=== PATIENT | female | born 1940 | race Caucasian/White ===

== ENCOUNTER 2017-08-15 07:41 | Emergency (ER) | payer MEDICARE, BC ==
[~2017-08-15] VITALS: Ht 170.2 cm; Wt 93.0 kg
[~2017-08-15 07:41] MED LIST: ADULT LOW DOSE81 MG PO; ALLOPURINOL 30300 M1 PO; ASA81BEC PO; AUGMENTIN 875-1 EACH PO; B-12500 MCG PO; BAYER CHEWABLE81 MG PO; CALCIUM 1,0001 EACH PO; CIPRO250 M1 PO; CIPRO500 MG PO; CIPROFLOXACIN500 M1 PO; DARVOCET-N 1001 EACH PO; GLUCOPHAGE500 MG PO; JANUVIA25 MG PO; LEVOTHROID PO; LEVOTHYROXINE 0.1 MG PO; LISINOPRIL10 MG PO; LOMOTIL TABLET1 EACH PO; LOPRESSOR50 PO; MECLIZINE HCL25 M1 PO; METFORMIN HCL500 MG PO; NOHOMEMEDICATIONS; NORCO 5-325 TA1 EACH PO; ONDANSETRON HCL4 M2 PO; PANCRELIPASE PO; PHENERGAN 25 MG25 M1 PO; PRINIVIL5 MG PO; SORINE 80 MG TA80 M1 PO; SORINE 80 MG TA80 MG PO; TOPROL XL100 MG PO; ULTRAM 50MG TAB50 MG PO; ZOCOR 20 MG TAB20 M1 PO; ZOCOR20 MG PO
[2017-08-15] MEDS ORDERED: CREON DR 24,001 EACH PO (07:53)
[2017-08-15 08:58] LABS: ABSOLUTE BASOPHILS 0.1 thou/uL (0.0-0.2); ABSOLUTE EOSINOPHILS 0.3 thou/uL (0.0-0.7); ABSOLUTE LYMPHOCYTES 1.7 thou/uL (0.8-5.3); ABSOLUTE MONOCYTES 0.7 thou/uL (0.0-1.2); ABSOLUTE NEUTROPHILS 5.6 thou/uL (1.6-8.1); BASOPHILS 0.7 %; EOSINOPHILS 4.1 %; LYMPHOCYTES 19.8 %; MCH 30.2 pg (26.0-34.0); MCHC 32.6 g/dL (28.0-37.0); MCV 92.7 fL (80.0-100.0); MONOCYTES 8.2 %; MPV 8.9 fl. (7.2-11.1); NUCLEATED RBCS 0 /100WBC; PLATELET COUNT* 230 thou/uL (150-400); POLYS 67.2 %; RBC 4.64 mil/uL (4.20-5.00); RDW-CV 13.9 % (10.5-14.5); WBC 8.3 thou/uL (4.0-11.0)
[2017-08-15 09:09] LABS: CALCIUM 8.8 mg/dL (8.5-10.1); CREATININE 1.1 mg/dL (0.6-1.3); POTASSIUM 4.3 mmol/L (3.5-5.1)
[2017-08-15 09:14] LABS: ALBUMIN 3.3 g/dL (3.4-5.0); TOTAL BILIRUBIN 0.6 mg/dL (<0.1-1.0); TOTAL PROTEIN 7.4 g/dL (6.4-8.2)
[2017-08-15 09:16] LABS: URINE BILIRUBIN NEGATIVE (Negative); URINE BLOOD NEGATIVE (Negative); URINE CLARITY CLEAR; URINE COLOR YELLOW; URINE GLUCOSE-RANDOM NEGATIVE (Negative); URINE KETONES NEGATIVE (Negative); URINE LEUKOCYTES-REFLEX NEGATIVE (Negative); URINE NITRITE-REFLEX NEGATIVE (Negative); URINE PROTEIN NEGATIVE (Negative); URINE UROBILINOGEN 0.2 E.U./dl (0.2-1.0)
[2017-08-15 09:52] VITALS: BP 166/69
== END 2017-08-15 10:39 | disposition home or self-care (01) ==
LOC: M.ERS 07:41
PROVIDERS: Personal Emergency Response Attendant
DX: C18.9 Malignant neoplasm of colon, unspecified (principal); E03.9 Hypothyroidism, unspecified; I48.91 Unspecified atrial fibrillation; I12.9 Hypertensive chronic kidney disease with stage 1 through stage 4 chronic kidney disease, or unspecified chronic kidney disease; N18.3 Chronic kidney disease, stage 3 (moderate); Z88.8 Allergy status to other drugs, medicaments and biological substances; Z90.49 Acquired absence of other specified parts of digestive tract

== ENCOUNTER 2017-08-20 05:50 | Inpatient (IN) | payer MEDICARE, BC ==
[~2017-08-20] VITALS: Ht 167.6 cm; Wt 92.1 kg
[~2017-08-20 05:50] MED LIST changes: +CREON DR 24,001 EACH PO
[2017-08-20 15:30] VITALS: BP 147/56
--- NOTE | 2017-08-20 15:30 | NUR ---
ASSUMED PT. CARE AND RECEIVED REPORT FROM JOSE A MOSES. PT. A/OX4, VSS, MONITOR PLACED TRACING SR. PT. CURRENTLY RATES PAIN @ 3/10, GIVEN MORPHINE IN PACU PRIOR TO TRANSPORT. FULL ASSESSMENT COMPLETED, REFER TO CHARTING. LAP SITES TO ABD, DRESSED WITH CLEAN INTACT DRESSINGS. FAMILY AT BEDSIDE. PT. ORIENTED TO ROOM/PROCEDURES. CALL LIGHT IN REACH, WILL CONTINUE WITH PLAN OF CARE.
--- NOTE | 2017-08-20 18:50 | NUR ---
PT. STABLE THROUGH OUT SHIFT. TREATED FOR PAIN X1, TOLERATED WELL. TOLERATED ICE CHIPS AND WATER, HOWEVER HAS NOT ATTEMPTED OTHER CLEAR LIQUIDS AT THIS TIME. PT. EDUCATED ON NEED TO INCREASE ACTIVITY TO HELP WITH GAS PAIN, VERBALIZED UNDERSTANDING. HOURLY ROUNDING COMPLETED THROUGH OUT SHIFT FOR PT. SAFETY.
[2017-08-20 20:20] VITALS: BP 115/42
[2017-08-21] VITALS (7 sets, daily range): BP systolic 121–149; BP diastolic 43–74
[2017-08-21 05:28] LABS: ABSOLUTE EOSINOPHILS 0.2 thou/uL (0.0-0.7); ABSOLUTE LYMPHOCYTES 1.7 thou/uL (0.8-5.3); ABSOLUTE NEUTROPHILS 7.7 thou/uL (1.6-8.1); BASOPHILS 0.3 %; EOSINOPHILS 1.4 %; HEMATOCRIT 35.9 % (37.0-47.0); HEMOGLOBIN 12.1 gm/dL (12.0-15.0); LYMPHOCYTES 16.1 %; MCH 30.5 pg (26.0-34.0); MCHC 33.7 g/dL (28.0-37.0); MCV 90.4 fL (80.0-100.0); MONOCYTES 9.6 %; MPV 8.2 fl. (7.2-11.1); NUCLEATED RBCS 0 /100WBC; PLATELET COUNT* 187 thou/uL (150-400); POLYS 72.6 %; RBC 3.97 mil/uL (4.20-5.00); RDW-CV 13.9 % (10.5-14.5); WBC 10.7 thou/uL (4.0-11.0)
[2017-08-21 05:52] LABS: ALBUMIN 2.7 g/dL (3.4-5.0); CALCIUM 7.8 mg/dL (8.5-10.1); CREATININE 1.4 mg/dL (0.6-1.3); POTASSIUM 4.8 mmol/L (3.5-5.1); TOTAL BILIRUBIN 0.7 mg/dL (<0.1-1.0); TOTAL PROTEIN 5.5 g/dL (6.4-8.2)
--- NOTE | 2017-08-21 07:30 | NUR ---
ASSUMED CARE OF PT ASSESSED AND DOCUMENTED. PT IS ON CARDIAC MONITER TRACING SR WITH PVC,S HR 75. PT IS ON FALL PRECAUTIONS PER FACILITY PROTOCOL. VSS WNL. PT IS AFEBRILE. DAUGHTER IS AT BEDSIDE. CALL LIGHT IN REACH. WM.
--- NOTE | 2017-08-21 07:46 | NUR ---
PT IS ABLE TO COMMUNICATE HER NEEDS TO STAFF EFFECTIVELY. CURRENT PAIN MEDICATION REGIMEN HAS BEEN ADEQUATE FOR CONTROLLING HER PAIN UP TO THIS TIME. SHE IS POD#1 S/P GI SURGERY, DONE LAPROSCOPICLY, TO REMOVE AN INTESTINAL ADENOMA ETC. ZAPATA REMOVED THIS AM; TOLERATED WELL, TIP INTACT. SURGERY WILL CONTINUE TO FOLLOW HER PROGRESS.
--- NOTE | 2017-08-21 10:48 | OP ---
[address] [address] OPERATIVE REPORT Name: CRISTINA KNUTSON Room: [address] IN M.R.#: [id number] Admission: 08/20/17 Attend Phys: Eagle Watkins DO Discharge: Date of : 38 Report #: [id number] THIS REPORT FOR: //name// CC: Eagle Lazaro DO DATE OF SERVICE: 08/20/2017 REFERRING PHYSICIAN: Dr. Nubia Lazaro and also Dr. Mishel Hitchcock. 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 PROCEDURE: Laparoscopic right hemicolectomy with ileotransverse anastomosis and excision of peritoneal mass. SURGEON: Eagle Watkins DO. PRINCIPAL SCIENTIST: Marylu Sullivan DO, PGY3 resident and also student Dr. Lee Powell, MS3. ANESTHESIA: General endotracheal. ESTIMATED BLOOD LOSS: Less than 30 mL. COMPLICATIONS: None. INDICATIONS FOR PROCEDURE: The patient is a 76-year-old female who presented to the office with a colonoscopy, which showed a tubulovillous adenoma of the right colon with high-grade dysplasia. She had been getting a CAT scan for a history of pancreatitis, which noticed this questionable mass, which then instigated the colonoscopy. DESCRIPTION OF PROCEDURE: After obtaining proper consents and discussing risks and complications with the patient, she was taken to the operating room, laid in the supine position, administered general anesthesia. She was then prepped and draped in the usual fashion. She was placed in lithotomy position as well. She was secured to the bed. Preoperative antibiotics had been given. SCDs were in place. A timeout was performed and we confirmed the appropriate patient and procedure. We then made a supraumbilical skin incision with a #11 [place] [address] OPERATIVE REPORT Name: VALE KNUTSONDA MICHELLE Room: [address] IN ..#: [id number] Admission: 08/20/17 Attend Phys: Eagle Watkins DO Discharge: Date of : 39 Report #: [id number]. This was carried down through the skin into the subcutaneous tissue using electrocautery for hemostasis. Once the fascia was encountered, it was incised along the midline, grasped and elevated with [facility] clamps and divided further. The peritoneum was then bluntly opened using a hemostat. A finger was placed inside the peritoneal cavity to assure there were no ty-incisional adhesions. Next, 2-0 Vicryl sutures were placed in a [id number] fashion to secure the Kleber trocar, which was then inserted and insufflation was begun. Once insufflation was complete, full visual inspection of the anterior abdominal organs was performed. We were immediately able to identify the mass in the right colon. This had a very concerning appearance for invasive carcinoma and did appear to be coming through the colonic wall and attaching to the peritoneal surface. We also identified multiple very small whitish peritoneal and mesenteric masses. These were all less than 1 cm, but were located along the right pericolic gutter as well as down in the pelvis. We did visualize the liver and saw no gross abnormalities. No evidence of metastasis in this area. We then placed a 5 mm trocar in the suprapubic position and another 5 mm trocar in the left lower quadrant. I was then able to elevate the cecum. The mass in the right colon appeared quite large by palpation with laparoscopic instruments. There also appeared to be some mesenteric implants along the right colon. There was also an area of the omentum, which was identified, which was quite firm and consistent with a possible metastasis. We began by freeing up the right colon and the terminal ileum by opening the white line of Toldt. We did excise some of the peritoneum around where the mass was adherent to the peritoneal surface. Using blunt dissection, I was able to take down the majority of the right colon and free it up in order to move it medially to the midline. We then placed another 5 mm trocar in the left upper quadrant in order to retract the colon inferiorly. We then took down the transverse colon and went around the hepatic flexure to free up the entire right colon. When we felt that we had enough freed up, we then stopped the insufflation. We enlarged our supraumbilical incision and placed an Pepe retractor and then attempted to bring the mass and the entire right colon and transverse colon up through the incision; however, it appeared that we had not freed up quite enough of the transverse colon, so we then reinsufflated and again laparoscopically took down more of the right colon beyond the midline to the gastrocolic omentum, which was opened. We then were able to mobilize the entire right colon and transverse colon well past the midline. We did identify the duodenum and kept this out of harms way as well. We then again opened and brought the colon up through the Pepe retractor and we were able to identify proximal and distal resection area. At this time, we also noted that there was some omentum, which again felt very suspicious for omental metastasis and this was included in our resection. We then opened an avascular window in the terminal ileum and a KAREN 80 was inserted and fired across this. We then identified a distal resection margin beyond the right branch of the middle colic artery and this area was opened and a KAREN 80 was fired across this as well. We then used the LigaSure device to sequentially clamp and divide the mesentery until it was attached only at the ileocolic vessels. These were clamped proximally and distally [place] [address] OPERATIVE REPORT Name: CRISTINA KNUTSON Room: [address] IN .R.#: [id number] Admission: 08/20/17 Attend Phys: Eagle Watkins DO Discharge: Date of : 38 Report #: [id number] and then divided. We then doubly ligated the vessels using 2-0 silk suture. The specimen was then passed off and this included the peritoneal masses as well as the omental mass. We also then excised a small peritoneal mass, which was sent as a separate specimen. We then performed the anastomosis in a [id number] fashion by opening a colotomy and enterotomy and then inserted the KAREN 80 and fired it to form the anastomosis and the TA-60 stapler was used to close the colotomy. We then placed 2 crotch sutures with 2-0 Vicryl suture. We checked the area for hemostasis and then dropped this back into the peritoneal cavity. We then reinsufflated and again checked the area for hemostasis and assured there were no leaks. We then copiously irrigated the abdominal cavity. We then elected to stop the procedure. The Pepe retractor was removed along with all of the other trocars under direct vision. We then closed the midline fascia using a running #1 looped PDS suture. The subcutaneous tissues were injected with 0.5% Marcaine without epinephrine. Skin incisions were all closed using 4-0 Monocryl subcuticular stitches. The wounds were then dressed and the patient was awakened in the operating room and transported to recovery room in stable condition. <ELECTRONICALLY SIGNED> By: Eagle Watkins DO 08/21/17 1048 [id number] Watkins DO /nt
--- NOTE | 2017-08-21 12:00 | NUR ---
MET WITH PT AND DTR/LUIS TO DISCUSS HOME SITUATION/DC PLANNING. PT LIVES ALONE, SPOUSE IN FEBRUARY, SHE CARED FOR HIM PRIOR TO HIS . SHE HAS HIS EQUIPMENT STILL IF NEEDED (WALKER, BSC, SHOWER BENCH) HER APT IS HANDICAP ACCESSIBLE. PT HAS 8 CHILDREN, THEY ARE ALL ABLE TO ASSIST NEEDED. PT IS NORMALLY VERY INDEPENDENT, DRIVES AND USES NO EQUIPMENT. PER NOTES, [facility] HAS ALREADY BEEN CONSULTED BY DR HERNANDEZ AND HAVE CONTACTED PT AND DTR. WILL NEED ORDERS CALLED AND FAXED AT DC. PT PLANS TO RETURN TO HER APT AT DC. WILL FOLLOW [facility] [phone] FAX [phone]
--- NOTE | 2017-08-21 13:43 | NUR ---
Nutrition: Pt seen for nursing risk poor appetite and wt loss. Pt stated she maybe has lost a couple of pounds due to eating a little less. Usual wt was 210#, currently 205-203#. She supplements diet at home with Boost+. She dislikes Boost Breeze - refused today. CLD. Alb 2.7, BG 153. Pt appears at low risk. She is hungry and tolerating liquids well. Will follow up per protocol.
--- NOTE | 2017-08-21 17:25 | NUR ---
PT HAS BEEN UP TO THE BEDSIDE COMMODE. SHE VOIDS APPROX 50 ML PER HOUR. ENCOURAGE FLUIDS BUT HAS NOT BEEN VERY EFFECTIVE. NEW ORDER FOR IS AND PTHERPY. PT HAS HAD SEVERAL FAMILY MEMBERS AT BEDSIDE. 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 SHE WAS UNHAPPY THAT IT WAS TAKEING SO LONG TO GET PT AND ISPIROMETER. SURGICAL SITES ARE CLEAN DRY AND INTACT. PT STATES SHE HAS NO PAIN. EDUCATION GIVEN ON DEMAND. HOURLY ROUNDING COMPLETE. CALL LIGHT IN REACH. FAMILY AT BESIDE. PT IS NOW RESTING.
[2017-08-22 00:01] VITALS: BP 158/66
[2017-08-22 04:00] VITALS: BP 156/64
--- NOTE | 2017-08-22 05:08 | NUR ---
PT IS ABLE TO COMMUNICATE HER NEEDS TO STAFF EFFECTIVELY. SHE HAS DENIED THE NEED FOR PAIN MEDICATION UP TO THIS TIME. LAPROSCOPIC INCISION SITES ARE INTACT AND DRY; SURGERY IS FOLLOWING HER PROGRESS. SHE HAS BEEN UP TO THE BEDSIDE COMODE SEVERAL TIMES DURING THIS SHIFT.
[2017-08-22 05:33] LABS: HEMATOCRIT 38.3 % (37.0-47.0); HEMOGLOBIN 12.8 gm/dL (12.0-15.0); MCH 30.2 pg (26.0-34.0); MCHC 33.5 g/dL (28.0-37.0); MPV 8.6 fl. (7.2-11.1); RBC 4.25 mil/uL (4.20-5.00); RDW-CV 13.8 % (10.5-14.5); WBC 11.6 thou/uL (4.0-11.0)
[2017-08-22 05:51] LABS: ALBUMIN 2.9 g/dL (3.4-5.0); CALCIUM 8.4 mg/dL (8.5-10.1); CREATININE 1.1 mg/dL (0.6-1.3); MAGNESIUM 1.8 mg/dL (1.8-2.4); PHOSPHORUS* 2.6 mg/dL (2.5-4.9); POTASSIUM 4.2 mmol/L (3.5-5.1); TOTAL BILIRUBIN 0.7 mg/dL (<0.1-1.0); TOTAL PROTEIN 6.9 g/dL (6.4-8.2)
[2017-08-22 07:30] VITALS: BP 151/55
--- NOTE | 2017-08-22 09:50 | NUR ---
PT DEMONSTRATES STABLE INDEPENDENT BED MOB, TRANSFERS AND GAIT W/O DME SUPPORT. PT INDICATES SHE DOES HAVE ACCESS TO CANE/RW AT HOME IF NEEDED. PT INDICATES SHE HAS A HANDICAP ACCESSIBLE HOME W/ SHOWER CHAIR, GRAB BARS. PT HAS STRONG SOCIAL SUPPORT FROM CHILDREN FOR ERRANDS, HOME MANAGEMENT, LAUNDRY. NO FURTHER ACUTE PT SERVICES ARE INDICATED.
[2017-08-22 11:56] VITALS: BP 173/69
--- NOTE | 2017-08-22 15:55 | NUR ---
RECEIVED PT CARE 0700. PT IS ALERT AND ORIENTED X4. VSS. 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 PT DENIES ANY SOA. O2 SAT 96% ON ROOM AIR. PATIENT UP IN ROOM WITH BATHROOM PRIVILEDGES. GAIT IS STEADY. IVF INFUSING. ADVANCED DIET TO FULL LIQUIDS PER SURGERY. ABDOMINAL LAP SITES INTACT, NO FRESH DRAINAGE. AREA TENDER AND SORE TO PATIENT. AM ASSESSMENT CHARTED. MEDS PER MAR. PATIENT UP TO DATE ON PLAN OF CARE. KEEPING CALL LIGHT WITHIN REACH. WILL CONTINUE TO MONITOR.
[2017-08-22 16:19] VITALS: BP 144/54
--- NOTE | 2017-08-22 19:16 | NUR ---
PT PROGRESSING TOWARDS GOALS. TOLERATING HER FULL LIQUID DIET WELL WITHOUT NAUSEA OR VOMITING. PAIN CONTROLLED. PT UP AMBULATING IN ROOM. GAIT IS STEADY. IV SALINE LOCKED. HOURLY ROUNDING CHARTED. CALL LIGHT WITHIN REACH. WILL CONTINUE TO MONITOR.
[2017-08-22 20:20] VITALS: BP 149/61
[2017-08-23] VITALS: BP 168/63
[2017-08-23 04:00] VITALS: BP 148/68
[2017-08-23 05:34] LABS: HEMOGLOBIN 11.4 gm/dL (12.0-15.0); MCH 30.7 pg (26.0-34.0); MCHC 33.7 g/dL (28.0-37.0); MCV 91.1 fL (80.0-100.0); MPV 8.9 fl. (7.2-11.1); NUCLEATED RBCS 0 /100WBC; PLATELET COUNT* 179 thou/uL (150-400); RBC 3.73 mil/uL (4.20-5.00); RDW-CV 14.1 % (10.5-14.5); WBC 8.2 thou/uL (4.0-11.0)
[2017-08-23 05:49] LABS: CALCIUM 8.3 mg/dL (8.5-10.1); CREATININE 1.1 mg/dL (0.6-1.3); MAGNESIUM 1.9 mg/dL (1.8-2.4); PHOSPHORUS* 3.2 mg/dL (2.5-4.9); POTASSIUM 4.1 mmol/L (3.5-5.1)
--- NOTE | 2017-08-23 07:04 | NUR ---
A&O X 4 CALM COOPERITVE. X1 ASSIST. SR ON THE MONITOR. VITALS WNL. FALL PRECAUTIONS IN PLACE. HOURLY ROUNDING FOR SAFETY
[2017-08-23 07:13] LABS: ABSOLUTE BASOPHILS 0.1 thou/uL (0.0-0.2); ABSOLUTE EOSINOPHILS 0.4 thou/uL (0.0-0.7); ABSOLUTE LYMPHOCYTES 1.7 thou/uL (0.8-5.3); ABSOLUTE MONOCYTES 0.8 thou/uL (0.0-1.2); ABSOLUTE NEUTROPHILS 5.2 thou/uL (1.6-8.1); BASOPHILS 0.9 %; EOSINOPHILS 4.3 %; LYMPHOCYTES 20.9 %; MONOCYTES 9.8 %; POLYS 64.1 %
[2017-08-23 08:00] VITALS: BP 147/69
[2017-08-23 12:02] VITALS: BP 140/58
[2017-08-23 12:59] VITALS: BP 121/43
[2017-08-23] MEDS ORDERED: NORCO 5-325 TA1 EACH PO (13:21)
--- NOTE | 2017-08-23 13:45 | NUR ---
VSS, ASSUMED CARE IN THE AM, ASSESSMENT PERFORMED AND CHARTED, FALL PRECAUTIONS IN PLACE AND CALL LIGHT IN REACH, PT IS A&O4 AND UP WITH STAND BY AND ON RA TRACING SR ON THE MONITOR, PT DENIES ANYB PAIN AND HER GOAL IS TO D/C TO HOME ON DAY OF CARE. AT THIS TIME I HAVE RECIEVED D/C INSTRUCTIONS, UPDATED MEDICATIONS LIST AND FOLLOW UP APPOINTMENTS PLACED IN D/C PAPERS, PT WAS GIVEN D/C INSTRUCTIONS AND IV AND TELE MONITOR D/C, HOURLY ROUNDS COMPLETED, PT DENIES ANY QUESTIONS OR CONCERNS AT TIME OF D/C, SCRIPTS AMD MEDICATION INFO SHEETS PROVITED TO PT, ALL BELONGINGS GATHERED AND PLACE WITH PT, PT WAS WALKED OUT VIA VOLNTEER AND WHEEL CHAIR TO FRONT TO CAR WITH FAMILY.
--- NOTE | 2017-08-27 15:40 | S ---
[address] [address] SURGICAL PATH RPT PROCEDURE Name: CRISTINA KNUTSON Room: [address] IN M.R.#: [id number] Admission: 08/20/17 Date of : 38 Discharge: 08/23/17 Report #: [id number] Path Case #: [id number] PATHOLOGY REPORT COLLECTION DATE: 08/20/2017 RECEIVED DATE: 08/20/2017 SUBMITTING PHYS: Dr. Eagle Watkins OTHER PHYS: Dr. Nubia Lazaro SPECIMEN(S) RECEIVED: A.Right colon B.Peritoneal implant * * * * * * * * * * * * FINAL DIAGNOSIS: A. 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 - AT LEAST TWO OF AT LEAST TWENTY-SIX LYMPH NODES WITH METASTATIC MUCINOUS ADENOCARCINOMA. (SEE COMMENT) - Appendiceal remnant. SPECIMEN Specimen: Terminal ileum Cecum Ascending colon Procedure: Right hemicolectomy Macroscopic Intactness of Mesorectum: Not applicable TUMOR Primary Tumor Site: Cecum Histologic Type: Mucinous adenocarcinoma Histologic Grade: Low-grade (well differentiated to moderately differentiated) Tumor Size: Greatest dimension (cm): 5.6 Tumor Deposits: Not identified Tumor Extent Site(s) of Direct Extent of Tumor: Cecum Microscopic Tumor Extension: Tumor directly invades adjacent structures: inked pericolic fatty surface is involved by mucinous adenocarcinoma Macroscopic Tumor Perforation: Not Identified Accessory Tumor Findings Lymph-Vascular Invasion: [place] [address] SURGICAL PATH RPT PROCEDURE Name: CRISTINA KNUTSON Room: [address] IN [facility]#: [id number] Admission: 08/20/17 Date of : 38 Discharge: 08/23/17 Report #: [id number] Path Case #: [id number] Histologic Features Suggestive of Microsatellite Instability Intratumoral Lymphocytic Response (tumor-infiltrating lymphocytes): None Peritumor Lymphocytic Response (Crohn-like response): None Tumor Subtype and Differentiation: Mucinous tumor component Specify Percentage of Mucinous Tumor Component: 90 Perineural Invasion: Not identified Type of Polyp in Which Invasive Carcinoma Arose: Tubulovillous adenoma MARGINS For Resection Specimens Only Proximal Margin: Uninvolved by invasive carcinoma Distance of Tumor from Margin: Specify (cm): 7.7 Distal Margin: Uninvolved by invasive carcinoma Distance of Tumor from Margin (required only for rectal tumors): Specify (cm): 8.2 Circumferential (Radial) Margin: Involved by invasive carcinoma (tumor present 0-1 mm from margin) Mesenteric Margin: Uninvolved by invasive carcinoma Distance of Tumor from Margin: Specify (cm): 5.8 LYMPH NODES Regional Lymph Nodes: Number of Lymph Nodes Examined: At least: 26 Number of Lymph Nodes Involved: At least: 2 STAGE (PTNM) Primary Tumor (pT): pT4b: Tumor directly invades or is adherent to other organs or structures Regional Lymph Nodes (pN): pN1b: Metastasis in 2 to 3 regional lymph nodes ADDITIONAL FINDINGS Additional Pathologic Findings: Other: widespread, separate low grade micropapillary serous carcinoma, 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 Peritoneal implants: - LOW GRADE MICROPAPILLARY SEROUS CARCINOMA. (SEE COMMENT) COMMENT: Multiple sections of the cecal tumor show villous adenoma with extracellular mucinous type adenocarcinoma extending directly out of it, through the wall of the colon, and into the fat to involve the inked fatty surface (A4 and A6). In addition, a distinctly different low grade papillary serous carcinoma is seen in multiple sections including essentially all of the grossly described "[place] [address] SURGICAL PATH RPT PROCEDURE Name: CRISTINA KNUTSON Room: [address] IN [facility]#: [id number] Admission: 08/20/17 Date of : 38 Discharge: 08/23/17 Report #: [id number] Path Case #: [id number] omentum" (A23), the peritoneal implant (B1), the serosa/wall of the cecum at the staple line for the missing base of appendix (A24), and in several foci where it is seen to collide with the mucinous adenocarcinoma (A3, A4, A6, and A8). The latter tumor shows distinct invasive micropapillae with low grade nuclei associated with desmoplasia and many psammoma bodies throughout, typical of that seen as an ovarian primary. A panel of properly controlled immunohistochemical stains are performed on the cecal tumor (A3) as well as the peritoneal implant (B1) and show the following results: (Block A3) (Block B1) CK7- Negative CK7 - Positive CK20 - Positive CK20 - Negative WT-1 - Cytoplasmic weak positive , nuclear negative WT-1 - Nuclear positive, cytoplasmic negative PAX8 - Negative PAX8 - Positive CDX2 - Positive CDX2 - Negative HBME-1 - Negative HBME-1 - Positive CEAp - Positive CEA-p - Negative Calretinin - Negative Calretinin - Negative Estrogen receptor - Positive Sections of the "possible satellite tumor" submitted in A11 through A13 are noted to represent a large nodule of mucinous adenocarcinoma with some adjacent residual minor lymph node and this nodule, which measured 2.0 x 1.5 x 1.4 cm, may represent several matted lymph nodes and it is noted that mucinous adenocarcinoma extends into the adjacent perinodal fat as well. Microsatellite instability/mismatch repair protein testing performed on A8 (noted to contain both mucinous adenocarcinoma and serous carcinoma) shows the following results: Specimen: Formalin fixed paraffin embedded tissue Specimen ID: [id number] Reason for testing: To evaluate for evidence of defective mismatch repair proteins. Method: Immunohistochemical staining for the presence or absence of protein expression of one or more of the following MMR protein markers: MLH1, MSH2, MSH6 and PMS2. Tumor type: Colonic mucinous adenocarcinoma (extracellular type) Results: MLH1 [place] [address] SURGICAL PATH RPT PROCEDURE Name: CRISTINA KNUTSON Room: [address] IN [facility].#: [id number] Admission: 08/20/17 Date of : 38 Discharge: 08/23/17 Report #: [id number] Path Case #: [id number] MSH2 - Preserved MSH6 - Preserved PMS2 - Preserved Mismatch Repair Status: MMR Proficient (MMR-P) Interpretation: (MMR-P) All four MMR proteins are preserved within tumor cells. This suggests the presence of normal DNA mismatch repair function within the tumor and an observable defect in mismatch repair is not identified. The likelihood that this patient has an inherited germline mutation syndrome due to defective mismatch repair is reduced but not totally eliminated. If the patient has a strong personal or family history of HPNCC/Duarte syndrome related cancers (colorectal, endometrial, gastric, ovarian, pancreatic, ureter/renal pelvis, biliary tract, brain, small bowel and Gabriel-James syndrome), consider MSI testing by PCR methodology. Suggest clinical correlation and follow up. Specimen: Formalin fixed paraffin embedded tissue Specimen ID: A8 Reason for testing: To evaluate for evidence of defective mismatch repair proteins. Method: Immunohistochemical staining for the presence or absence of protein expression of one or more of the following MMR protein markers: MLH1, MSH2, MSH6 and PMS2. 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 This suggests the presence of normal DNA mismatch repair function within the tumor and an observable defect in mismatch repair is not identified. The likelihood that this patient has an inherited germline mutation syndrome due to defective mismatch repair is reduced but not totally eliminated. If the patient has a strong personal or family history of HPNCC/Duarte syndrome related cancers (colorectal, endometrial, gastric, ovarian, pancreatic, ureter/renal pelvis, biliary tract, brain, small bowel and [place]-James syndrome), consider MSI testing by PCR methodology. Suggest clinical correlation and follow up. These test results are designed for screening purposes only and are useful tools in identifying cancer patients that are more likely to have Duarte Syndrome related diagnoses. Tests should be interpreted in the context of clinical findings, family history and laboratory data. Abnormal IHC results for MMR protein expression are not considered diagnostic [place] [address] SURGICAL PATH RPT PROCEDURE Name: CRISTINA KNUTSON Room: [address] DIS IN M.R.#: [id number] Admission: 08/20/17 Date of : 38 Discharge: 08/23/17 Report #: [id number] Path Case #: [id number] The section of the grossly described cystic structure in the pericolic fat (A14) shows a lumen lined by a uniform colonic mucosal lining and rimed by a muscle wall and is most consistent with a remnant of appendiceal tissue. Preliminary findings discussed with Dr. Eagle Watkins on afternoon of 08/22/2017. Reviewed with Dr. David Gtz who agrees with the diagnoses. (MELISSA:db:; 08/26/2017) Professional services performed under supervision of [facility] Car[place] [address]. Technical services performed by [facility] under supervision of a [facility] Car[employer] Gr[employer] Inspector at [address] [place] [address], [address], [place] [address]. PATHOLOGIST: Herbie Dubois M.D. REPORT ELECTRONICALLY SIGNED BY: Herbie Dubois M.D. DATE/TIME: 08/27/2017 15:39 * * * * * * * * * * * * GROSS PATHOLOGY: A. The specimen is received in formalin labeled "Cristina Knutson, right colon". Received is a right hemicolectomy specimen consisting of a segment of small bowel measuring 6.9 cm in length by 2.2 cm in diameter contiguous with a segment of right colon measuring 14.8 cm in length and ranging in diameter from 3.8 to 4.5 cm. Both margins are stapled closed. The serosal surface of the small bowel is pink-posadas and smooth in appearance, and is predominantly fat wrapped. The serosal surface of the colon is pink-posadas in appearance with slight amount of overlying adhesions, and is predominantly fat wrapped. 8.8 cm from the distal margin, the colon is strictured. The attached mesenteric fat measures up to 6.1 cm in thickness. There is a moderate amount of attached omentum measuring 12.2 x 9.5 x 2.1 cm. The specimen is opened along the antimesenteric line and placed into formalin admixed with a lymph node enhancement solution prior to sectioning. After overnight fixation, further opening of the specimen reveals light posadas mucosa with normal architectural folds in the small bowel. The ileocecal valve is pale posadas and slightly lipomatous in appearance. 1.5 cm distal to the ileocecal valve, there is a well-circumscribed, irregular in contour, friable pale posadas mass measuring 5.6 x 4.5 cm, which is 7.7 cm from the proximal margin, and 8.2 cm from the distal margin. Though the mass is not circumferential, there is a 90% occlusion of the colonic lumen. The opposing serosal and fatty surfaces are inked black. Sectioning through the mass reveals gross extension through the muscular propria into the underlying soft tissue where the mass displays mucinous characteristics, which grossly abuts the inked fatty surface, and is 5.8 cm from the mesenteric margin. The maximum depth of invasion is [facility] [address] [place] [address] SURGICAL PATH RPT PROCEDURE Name: CRISTINA KNUTSON Room: [facility]- DIS IN M.R.#: [id number] Admission: 08/20/17 Date of : 38 Discharge: 08/23/17 Report #: [id number] Path Case #: [id number] 2.4 cm. The remainder of the colonic mucosa is light posadas and predominantly flattened in appearance. No additional nodules or lesions are noted grossly. The appendix is absent. Sectioning through the attached pericolic fat reveals a possible satellite tumor displaying mucinous characteristics, measuring 2.0 x 1.5 x 1.4 cm in greatest dimensions, which is 0.5 cm from the fatty surface, which is inked blue. This possible satellite tumor is located in the pericolic fat 1.4 cm proximal to the mass and 4.5 cm from the mesenteric margin. Further sectioning through the pericolic fat reveals a cystic structure measuring 1.2 cm filled with light brown fluid, as well as 22 readily identifiable lymph nodes ranging in size from 0.1 to 1.1 cm in maximum dimensions. Sectioning through the omentum reveals an indurated area measuring 2.5 x 2.5 x 1.4 cm in greatest dimensions. The remainder the omentum displays yellow-posadas, lobulated cut surfaces with no grossly distinct nodules or lesions. The specimen is submitted representatively as follows: A1 proximal margin, en face A2 distal margin, en face A3-A10 junior sales representative sections of mass, with cassettes A4 through A7 additionally bisected into mucosal and serosal/fatty aspects, with relationship of mass with inked fatty surface submitted in cassettes A4 and A6 A11-A13 junior sales representative sections of possible satellite tumor, with closest fatty surface submitted in cassette A11 A14 junior sales representative section of cystic structure located in pericolic fat A15 small bowel mucosa A16 ileocecal valve A17 uninvolved colonic mucosa A18-A21 intact lymph nodes A22 one bisected lymph node A23 junior sales representative sections of indurated omentum. ([facility]; 08/21/2017) After initial microscopic examination, gross photographs are taken from the serosal and mucosal aspects of the appendiceal orifice. Sectioning through this area reveals the presence of multiple ирина consistent with a staple line. This area is sectioned and submitted entirely in cassettes A24 and A25. ([facility]; 08/23/2017) B. The specimen is received in formalin labeled "Cristina Knutson, peritoneal implants". Received is a segment of yellow-posadas lobulated tissue measuring 0.6 x 0.5 x 0.3 cm in greatest dimensions. The specimen is submitted entirely in cassette B1. ([facility]; 08/21/2017) CLINICAL HISTORY: Tubulovillous [place] [address] SURGICAL PATH RPT PROCEDURE Name: CRISTINA KNUTSON Room: [address] IN [facility].#: [id number] Admission: 08/20/17 Date of : 38 Discharge: 08/23/17 Report #: [id number] Path Case #: [id number] INITIAL CPT CODE(S): A; 39783, 36776, 50858, 43852, 03046, 32135, 97231, 92198, 57160, 72908, 26164, 65127, 83822, 96739, 46239, 68282, 05572 B; 54159, 20368, 08792, 42778, 72710, 59310, 33041, 79020, 65334, 16393, 54160(3) Professional services performed by [facility] at [address], [place] [address] Technical services performed by [facility] at [address] [place] [address], [address], [place] [address]. [facility] [address] [place] [address] PHONE: [phone] DIRECTOR: David Gtz M.D. * * * END OF REPORT * * *
== END 2017-08-23 13:30 | disposition home or self-care (01) | DRG 330 ==
LOC: M.TBA 05:50 → M.PRE 08:10 → M.TBA 11:08 → M.2W 15:01
PROVIDERS: ADMIT Surgery
PROC: 0DBW4ZZ Excision of Peritoneum, Percutaneous Endoscopic Approach (ICD-10-PCS; principal; 2017-08-20)
PROC: 0DTF4ZZ Resection of Right Large Intestine, Percutaneous Endoscopic Approach (ICD-10-PCS; principal; 2017-08-20)
DX: C18.9 Malignant neoplasm of colon, unspecified (principal); E44.1 Mild protein-calorie malnutrition; I12.9 Hypertensive chronic kidney disease with stage 1 through stage 4 chronic kidney disease, or unspecified chronic kidney disease; E03.9 Hypothyroidism, unspecified; I48.91 Unspecified atrial fibrillation; Z87.891 Personal history of nicotine dependence; Z68.32 Body mass index [BMI] 32.0-32.9, adult; Z23 Encounter for immunization; Z79.899 Other long term (current) drug therapy; Z88.8 Allergy status to other drugs, medicaments and biological substances

== ENCOUNTER 2017-09-05 08:13 | Inpatient (IN) | payer MEDICARE, BC ==
[~2017-09-05] VITALS: Ht 170.2 cm; Wt 90.7 kg
[2017-09-05 08:13] VITALS: BP 182/82
[2017-09-05 08:41] LABS: HEMATOCRIT 37.4 % (37.0-47.0); HEMOGLOBIN 12.4 gm/dL (12.0-15.0); MCH 29.9 pg (26.0-34.0); MCHC 33.3 g/dL (28.0-37.0); MPV 7.8 fl. (7.2-11.1); NUCLEATED RBCS 0 /100WBC; PLATELET COUNT* 330 thou/uL (150-400); RBC 4.15 mil/uL (4.20-5.00); WBC 16.7 thou/uL (4.0-11.0)
[2017-09-05 08:48] LABS: CALCIUM 8.1 mg/dL (8.5-10.1); CREATININE 1.2 mg/dL (0.6-1.3); POTASSIUM 4.5 mmol/L (3.5-5.1)
[2017-09-05 08:53] LABS: ALBUMIN 3.1 g/dL (3.4-5.0); TOTAL BILIRUBIN 0.5 mg/dL (<0.1-1.0); TOTAL PROTEIN 6.9 g/dL (6.4-8.2)
[2017-09-05 09:24] LABS: ABSOLUTE EOSINOPHILS 0.2 thou/uL (0.0-0.7); ABSOLUTE LYMPHOCYTES 1.3 thou/uL (0.8-5.3); ABSOLUTE NEUTROPHILS 14.2 thou/uL (1.6-8.1); ATYPICAL LYMPHS 1 %; PLATELET ESTIMATE ADEQUATE
[2017-09-05 10:18] VITALS: BP 153/58
[2017-09-05 10:54] VITALS: BP 175/76
[2017-09-05 11:54] LABS: URINE BILIRUBIN NEGATIVE (Negative); URINE BLOOD NEGATIVE (Negative); URINE CLARITY CLEAR; URINE COLOR YELLOW; URINE GLUCOSE-RANDOM NEGATIVE (Negative); URINE KETONES NEGATIVE (Negative); URINE LEUKOCYTES-REFLEX NEGATIVE (Negative); URINE NITRITE-REFLEX NEGATIVE (Negative); URINE PROTEIN NEGATIVE (Negative); URINE UROBILINOGEN 0.2 E.U./dl (0.2-1.0)
[2017-09-05 15:56] VITALS: BP 168/79
--- NOTE | 2017-09-05 16:42 | NUR ---
ASSUMED CARE OF PATIENT AFTER TRANSFER FROM THE ER AT 1030. ALERT AND ORIENTED X4. ADMIT ASSESSMENT COMPLETED AND CHARTED. VSS ON ROOM AIR. PATIENT HAD NO COMPLAINTS OF NAUSEA. PAIN WAS MANAGED WITH PAIN MEDICATION. PATIENT RESTED COMFORTABLY IN BED THROUGHOUT SHIFT. FAMILY REPEATEDLY REQUESTED MORE PAIN MEDICATION FOR THE PATIENT, UPON ASSESSMENT THE PATIENT WOULD BE SLEEPING WHEN FAMILY WAS ASKING FOR MORE PAIN MEDICATION. MULTIPLE FAMILY MEMBERS HAVE BEEN AT BEDSIDE THROUGHOUT THE SHIFT AND WENT WITH PATIENT TO PACU AT APPROXIMATELY 1630 FOR PREP FOR SURGERY. HOURLY ROUNDS HAVE BEEN MAINTAINED AND CALL LIGHT WITHIN REACH WHIOLE PATIENT WAS ON THE UNIT. NURSING WILL CONTINUE TO MOINITOR WHEN PATIENT ARRIVES BACK ONTO THE UNIT.
--- NOTE | 2017-09-05 17:19 | EKG ---
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[facility] : 1940 Requested By: Eagle Watkins Order Number: [id number] Alisson MD: Donte Scott Measurements Intervals Liberty Rate: 103 P: 52 SC: 151 QRS: -5 QRSD: 79 T: 28 QT: 337 QTc: 441 Interpretive Statements Sinus tachycardia LVH by voltage Compared to ECG 04/16/2017 15:09:53 Left ventricular hypertrophy now present Sinus rhythm no longer present Electronically Signed On 09-05-2017 17:19:37 DATA ENTRY MANAGER by Donte Scott [email or web address] <ELECTRONICALLY SIGNED> By: Donte Scott MD, LOCATED WITHIN [facility] 09/05/17 1719 1508 1508 Donte Scott MD, FACC /EPI
[2017-09-05 20:50] VITALS: BP 140/54
[2017-09-05 23:54] VITALS: BP 132/56
[2017-09-06 03:36] VITALS: BP 140/61
[2017-09-06 04:38] LABS: ABSOLUTE LYMPHOCYTES 1.1 thou/uL (0.8-5.3); ABSOLUTE MONOCYTES 0.9 thou/uL (0.0-1.2); ABSOLUTE NEUTROPHILS 14.2 thou/uL (1.6-8.1); BASOPHILS 0.2 %; EOSINOPHILS 0.1 %; HEMATOCRIT 38.3 % (37.0-47.0); HEMOGLOBIN 12.8 gm/dL (12.0-15.0); LYMPHOCYTES 6.7 %; MCH 30.6 pg (26.0-34.0); MCHC 33.4 g/dL (28.0-37.0); MCV 91.6 fL (80.0-100.0); MONOCYTES 5.4 %; MPV 8.2 fl. (7.2-11.1); NUCLEATED RBCS 0 /100WBC; PLATELET COUNT* 346 thou/uL (150-400); POLYS 87.6 %; RBC 4.18 mil/uL (4.20-5.00); RDW-CV 13.9 % (10.5-14.5); WBC 16.2 thou/uL (4.0-11.0)
[2017-09-06 04:48] LABS: CALCIUM 7.6 mg/dL (8.5-10.1); CREATININE 1.4 mg/dL (0.6-1.3); PHOSPHORUS* 5.2 mg/dL (2.5-4.9)
[2017-09-06 04:55] LABS: POTASSIUM 5.6 mmol/L (3.5-5.1)
--- NOTE | 2017-09-06 08:01 | NUR ---
Arrived to floor at 2039 from surgery she had laparotomy with GRECIA drain placed to RLQ and STERLING drain also placed to midline abdomen. She refused pain or nausea meds. Lokesh Vegas slept well.
[2017-09-06 08:24] VITALS: BP 121/50
[2017-09-06 09:52] LABS: CALCIUM 7.6 mg/dL (8.5-10.1); CREATININE 1.6 mg/dL (0.6-1.3); POTASSIUM 5.3 mmol/L (3.5-5.1)
[2017-09-06 16:00] VITALS: BP 131/60
--- NOTE | 2017-09-06 16:55 | NUR ---
ASSUMED CARE OF PATIENT AFTER MORNING REPORT. ALERT AND ORIENTED X4. ASSESSMENT COMPLETED AND CHARTED. VSS ON 3 LITERS 02. PATIENT HAS HAS MINIMAL COMPLAINTS OF NAUSEA, NO MEDICATION HAS BEEN NEEDED. PAIN HAS BEEN MANAGED WITH PAIN MEDICATION. FLUIDS AND ANTIBIOTICS HAVE BEEN INFUSING ORDERED. PATIENT SCHEDULED FOR A RENAL ULTRASOUND THIS AFTERNOON WHICH WAS COMPLETED BUT RESULTS ARE NOT IN YET. CONSULT WITH NEPHROLOGY ORDERED AND SHOULD BE COMPLETED TOMORROW. SEVERAL SUPPORTIVE FAMILY MEMBERS AT BEDSIDE THROUGHOUT SHIFT. HOURLY ROUNDS HAVE BEEN MAINTAINED. CALL LIGHT IS WITHIN REACH. NURSING WILL CONTINUE TO MONITOR.
[2017-09-06 22:50] VITALS: BP 171/69
[2017-09-07 00:10] VITALS: BP 168/71
[2017-09-07 04:16] LABS: ABSOLUTE BASOPHILS 0.1 thou/uL (0.0-0.2); ABSOLUTE EOSINOPHILS 0.5 thou/uL (0.0-0.7); ABSOLUTE LYMPHOCYTES 1.4 thou/uL (0.8-5.3); ABSOLUTE MONOCYTES 0.8 thou/uL (0.0-1.2); ABSOLUTE NEUTROPHILS 10.2 thou/uL (1.6-8.1); BASOPHILS 0.6 %; EOSINOPHILS 3.6 %; HEMATOCRIT 33.3 % (37.0-47.0); HEMOGLOBIN 10.9 gm/dL (12.0-15.0); LYMPHOCYTES 11.1 %; MCHC 32.6 g/dL (28.0-37.0); MCV 92.3 fL (80.0-100.0); MONOCYTES 6.4 %; MPV 7.8 fl. (7.2-11.1); NUCLEATED RBCS 0 /100WBC; POLYS 78.3 %; RBC 3.61 mil/uL (4.20-5.00)
[2017-09-07 04:31] VITALS: BP 168/67
[2017-09-07 04:49] LABS: CALCIUM 7.7 mg/dL (8.5-10.1); CREATININE 1.1 mg/dL (0.6-1.3); MAGNESIUM 1.9 mg/dL (1.8-2.4); TOTAL BILIRUBIN 0.5 mg/dL (<0.1-1.0); TOTAL PROTEIN 5.5 g/dL (6.4-8.2)
[2017-09-07 04:53] LABS: POTASSIUM 4.2 mmol/L (3.5-5.1)
[2017-09-07 04:55] LABS: PLATELET COUNT* 244 thou/uL (150-400)
[2017-09-07 08:00] VITALS: BP 169/70
--- NOTE | 2017-09-07 09:15 | NUR ---
ALERT AND ORIENTED. REPOSITIONED EVERY 2 HOURS. STERLING DRAIN AND GRECIA DRAIN PATENT. MID ABDOMINAL DRESSING DRY AND INTACT. ZAPATA CATHETER PATENT WITH CLEAR YELLOW URINE. PATIENT C/O RIGHT UPPER QUADRANT PAIN. PATIENT STATED IT HURT WHEN SHE WOULD BREATH. ASSESSMENT AND V/S DONE. DR NOTIFIED OF ASSESSMENT, V/S AND PAIN. XRAY ORDERED AND RESULTS CALLED TO DR. HE SAID TO JUST WATCH PATIENT. IV PAIN MEDICATION GIVEN AND HELPFUL. CALL LIGHT WITHIN REACH. PATIENT STATED THAT BY THIS AM PAIN IN RUQ WAS COMPLETLY GONE.
[2017-09-07 15:59] VITALS: BP 162/59
--- NOTE | 2017-09-07 17:35 | NUR ---
ASSUMED CARE OF PATIENT AFTER REPORT THIS MORNING. PATIENT AWAKE, ALERT, AND ORIENTED APPROPRIATELY. PHYSICAL ASSESSMENT COMPLETED AND CHARTED. COMPLAINED OF PAIN THIS SHIFT. GIVEN PRN AND SCHEDULED MEDICATIONS, SEE EMAR FOR DOCUMENTATION. VITAL SIGNS STABLE. OXYGEN SATURATION WITHIN NORMAL LIMITS ON 2 LPM PER NASAL CANULA. PATIENT TRANSFERS AND AMBULATES WITH ASSISTANCE FROM STAFF. SAT ON SIDE OF BED AND DANGLED FEET THIS AFTERNOON. BACK IN BED AT THIS TIME. ABDOMINAL INCISION INTACT WITH STERLING DRESSING. USES CALL LIGHT APPROPRIATELY, WITHIN REACH. DENIES NEEDS AT THIS TIME. NURSING WILL CONTINUE TO MONITOR.
[2017-09-07 20:00] VITALS: BP 157/56
[2017-09-08 03:51] VITALS: BP 169/79
[2017-09-08 04:23] LABS: ABSOLUTE EOSINOPHILS 0.6 thou/uL (0.0-0.7); ABSOLUTE LYMPHOCYTES 1.3 thou/uL (0.8-5.3); ABSOLUTE MONOCYTES 0.7 thou/uL (0.0-1.2); BASOPHILS 0.3 %; EOSINOPHILS 5.9 %; HEMATOCRIT 31.5 % (37.0-47.0); HEMOGLOBIN 10.3 gm/dL (12.0-15.0); LYMPHOCYTES 12.2 %; MCH 30.1 pg (26.0-34.0); MCHC 32.7 g/dL (28.0-37.0); MCV 92.1 fL (80.0-100.0); MONOCYTES 6.8 %; MPV 7.8 fl. (7.2-11.1); NUCLEATED RBCS 0 /100WBC; PLATELET COUNT* 247 thou/uL (150-400); POLYS 74.8 %; RBC 3.42 mil/uL (4.20-5.00); RDW-CV 13.9 % (10.5-14.5); WBC 10.6 thou/uL (4.0-11.0)
[2017-09-08 04:47] LABS: PREALBUMIN 10.2 mg/dL (18.0-35.7)
[2017-09-08 04:48] LABS: ALBUMIN 1.9 g/dL (3.4-5.0); CALCIUM 7.7 mg/dL (8.5-10.1); MAGNESIUM 1.8 mg/dL (1.8-2.4); POTASSIUM 3.9 mmol/L (3.5-5.1); TOTAL BILIRUBIN 0.5 mg/dL (<0.1-1.0); TOTAL PROTEIN 5.5 g/dL (6.4-8.2)
--- NOTE | 2017-09-08 04:51 | NUR ---
PATIENT RESTING QUIETLY THIS AM ON HOURLY ROUNDS. DENIES NEED FOR PAIN MEDICATION THIS SHIFT. DRESSING TO ABDOMEN IS CLEAN, DRY AND INTACT WITH GRECIA DRAIN IN PLACE. NG PATENT TO LIS. PATIENT STATES SHE IS PASSING FLATUS THIS AM. ZAPATA CATH PATENT, CLEAR YELLOW RETURN. PATIENT NEEDS ENCOURAGEMENT TO AMBULATE. VITALS STABLE. WILL CONTINUE TO MONITOR.
[2017-09-08 07:43] VITALS: BP 167/69
[2017-09-08 16:19] VITALS: BP 166/72
--- NOTE | 2017-09-08 16:37 | NUR ---
ASSUMED CARE OF PATIENT AFTER REPORT THIS MORNING. PATIENT AWAKE, ALERT, AND ORIENTED APPROPRIATELY. PHYSICAL ASSESSMENT COMPLETED AND CHARTED. NO COMPLAINTS OF PAIN YET THIS SHIFT. GIVEN SCHEDULED MEDICATIONS, SEE EMAR FOR DOCUMENTATION. VITAL SIGNS STABLE. OXYGEN SATURATION WITHIN NORMAL LIMITS ON ROOM AIR. TITRATED PATIENT FROM 2 LPM PER NASAL CANULA TO ROOM AIR TODAY. PATIENT TRANSFERS AND AMBULATES WITH ASSISTANCE FROM STAFF. SAT IN CHAIR AT BEDSIDE THIS AFTERNOON. USING BEDSIDE COMMODE TO VOID WHEN ABLE TO. DC'D ZAPATA CATHETER AT 1100. HAS VOIDED ADEQUATE AMOUNTS THREE TIMES SINCE THEN. USES CALL LIGHT APPROPRIATELY, WITHIN REACH. FAMILY IN ROOM. DENIES NEEDS AT THIS TIME. NURSING WILL CONTINUE TO MONITOR.
--- NOTE | 2017-09-08 18:17 | NUR ---
NG TUBE DISCONTINUED PER PHYSICIAN ORDER. PATIENT TOLERATED WELL. INTACT.
[2017-09-08 20:00] VITALS: BP 174/71
[2017-09-09 01:21] VITALS: BP 167/67
[2017-09-09 04:05] VITALS: BP 165/74
[2017-09-09 04:33] LABS: ABSOLUTE EOSINOPHILS 0.6 thou/uL (0.0-0.7); ABSOLUTE LYMPHOCYTES 1.3 thou/uL (0.8-5.3); ABSOLUTE MONOCYTES 0.8 thou/uL (0.0-1.2); ABSOLUTE NEUTROPHILS 5.2 thou/uL (1.6-8.1); BASOPHILS 0.5 %; EOSINOPHILS 8.1 %; HEMATOCRIT 30.5 % (37.0-47.0); HEMOGLOBIN 10.6 gm/dL (12.0-15.0); LYMPHOCYTES 16.8 %; MCH 31.1 pg (26.0-34.0); MCHC 34.7 g/dL (28.0-37.0); MCV 89.4 fL (80.0-100.0); MONOCYTES 9.7 %; MPV 7.8 fl. (7.2-11.1); NUCLEATED RBCS 0 /100WBC; PLATELET COUNT* 256 thou/uL (150-400); POLYS 64.9 %; RBC 3.41 mil/uL (4.20-5.00); RDW-CV 13.4 % (10.5-14.5)
[2017-09-09 04:45] LABS: CALCIUM 7.8 mg/dL (8.5-10.1); MAGNESIUM 1.8 mg/dL (1.8-2.4); POTASSIUM 3.2 mmol/L (3.5-5.1)
--- NOTE | 2017-09-09 06:41 | NUR ---
ALERT AND ORIENTED. UP WITH STAND BY ASSIST AND GAIT BELT TO BEDSIDE COMMODE. DENIED NEED FOR PAIN MEDICATION. GRECIA DRAIN PATENT WITH SEROSANGINEOUS DRAINAGE. STERLING DRAIN PATENT. IVF INFUSING WITHOUT DIFFICULTY. CALL LIGHT WITHIN REACH.
[2017-09-09 07:58] VITALS: BP 168/68
--- NOTE | 2017-09-09 13:41 | NUR ---
PT.RESTING IN BED. ALERT AND ORIENTED. STATED SHE LIVES ALONE. PLANS ON GOING HOME AT DISCHARGE. SHE SAID SHE HAS MANY CHILDREN AND GRANDCHILDREN THAT CAN STAY WITH HER AND HELP HER IF NEEDED. ADULT GRANDAUGHTER IN ROOM AND SAID SHE WOULD STAY WITH HER. PT.SAID SHE DOESN'T USE ANY DME AT HOME BUT HAS A WALKER THAT USED TO BE HER HUSBANDS IF NEEDED. SHE WAS INDEPENDENT AT HOME WITH EVERYTHING. ENCOURAGED AMBULATION WITH NURSING. CM WILL FOLLOW.
[2017-09-09 16:00] VITALS: BP 164/62
--- NOTE | 2017-09-09 17:33 | NUR ---
ASSUMED CARE OF PATIENT AFTER MORNING REPORT. ALERT AND ORIENTED X4. ASSESSMENT COMPLETED AND CHARTED. VSS ON ROOM AIR. NO COMPLAINTS OF PAIN OR NAUSEA THIS SHIFT. PATIENT HAS BEEN UP TO THE CHAIR TODAY AND AMBULATING WELL. FLUIDS AND ANTIBIOTICS INFUSING ORDERED. HOURLY ROUNDS HAVE BEEN MAINTAINED. CALL LIGHT IS WITHIN REACH. NURSING WILL CONTINUE TO MONITOR.
[2017-09-10 01:13] VITALS: BP 181/90
[2017-09-10 04:35] VITALS: BP 169/76
[2017-09-10 04:44] LABS: ABSOLUTE BASOPHILS 0.1 thou/uL (0.0-0.2); ABSOLUTE EOSINOPHILS 0.7 thou/uL (0.0-0.7); ABSOLUTE LYMPHOCYTES 1.5 thou/uL (0.8-5.3); ABSOLUTE MONOCYTES 0.9 thou/uL (0.0-1.2); ABSOLUTE NEUTROPHILS 4.9 thou/uL (1.6-8.1); BASOPHILS 0.7 %; HEMATOCRIT 35.4 % (37.0-47.0); HEMOGLOBIN 11.8 gm/dL (12.0-15.0); LYMPHOCYTES 18.6 %; MCH 29.8 pg (26.0-34.0); MCHC 33.3 g/dL (28.0-37.0); MCV 89.4 fL (80.0-100.0); MONOCYTES 11.2 %; MPV 7.5 fl. (7.2-11.1); NUCLEATED RBCS 0 /100WBC; PLATELET COUNT* 306 thou/uL (150-400); POLYS 60.5 %; RBC 3.96 mil/uL (4.20-5.00); RDW-CV 13.6 % (10.5-14.5); WBC 8.1 thou/uL (4.0-11.0)
[2017-09-10 05:08] LABS: CALCIUM 7.9 mg/dL (8.5-10.1); CREATININE 0.9 mg/dL (0.6-1.3); MAGNESIUM 1.8 mg/dL (1.8-2.4); PHOSPHORUS* 2.4 mg/dL (2.5-4.9); POTASSIUM 3.3 mmol/L (3.5-5.1)
--- NOTE | 2017-09-10 05:38 | NUR ---
PATIENT HAS SLEPT WELL WITHOUT ANY ISSUES. VSS ON RA, ALTHOUGH BP ELEVATED. PHYSICIAN NOTIFIED. NEW ORDERS RECEIVED FOR BP MEDICATIONS. MEDICATIONS GIVEN ORDERED AND CHARTED. MIDLINE STERLING DRESSING TO ABDOMINAL AREA IS C/D/I, AND GRECIA DRAIN IN PLACE WITH SMALL AMOUNT OF SEROSANGINOUS DRAINAGE. IV IN LEFT AC-D5 1/2 NS @ 42ML/HR. PATIENT IS UP WITH ASSIST X 1 AND STEADY. PATIENT INSTRUCTED TO USE CALL LIGHT WHEN NEEDING ASSISTANCE. HOURLY ROUNDS MADE. WILL CONTINUE WITH PLAN OF CARE AND NURSING TO MONITOR.
[2017-09-10 07:35] VITALS: BP 167/75
[2017-09-10 16:00] VITALS: BP 159/77
--- NOTE | 2017-09-10 16:33 | NUR ---
ASSUMED CARE OF PATIENT AFTER MORNING REPORT. ALERT AND ORIENTED X4. ASSESSMENT COMPLETED AND CHARTED. VSS ON ROOM AIR. PATIENT HAS HAD NO COMPLAINTS OF PAIN OR NAUSEA THIS SHIFT. FLUIDS AND ANTIBIOTICS INFUSED ORDERED. PATIENT HAS BEEN UP TO THE CHAIR AND USING THE BEDSIDE COMMODE TODAY WITH LITTLE ASSISTANCE, DOING VERY WELL.HOURLY ROUNDS HAVE BEENMAINTAINED. CALL LIGHT IS WITHIN REACH. NURSING WILL CONTINUE TO MONITOR.
[2017-09-11 04:12] VITALS: BP 157/73
[2017-09-11 07:56] VITALS: BP 155/69
--- NOTE | 2017-09-11 08:28 | NUR ---
PATIENT HAS SLEPT WELL THROUGHOUT THE NIGHT WITHOUT ANY ISSUES. NO C/O PAIN. MEDICATIONS GIVEN AND CHARTED. VSS ON RA. 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 NO DRAINAGE NOTED AND NO S/S OF INFECTION. GRECIA DRAIN IN PLACE WITH MODERATE AMOUNT OF SEROSANGINOUS DRAINAGE. PATIENT IS UP WITH ASSIST X 1 TO BSC AND STEADY. PATIENT INSTRUCTED TO USE CALL LIGHT WHEN NEEDING ASSISTANCE. HOURLY ROUNDS MADE. WILL CONTINUE WITH PLAN OF CARE AND NURSING TO MONITOR.
--- NOTE | 2017-09-11 10:54 | NUR ---
Pt was seen d/t hospital LOS. Pt was admitted for colitits and colon cancer. Pt is having BMs and needs to tolerate 2 regular meals prior to d/c per MD note. Pt denies any recent wt loss. Pt reports tolerating regular diet and appetite is doing fine. Chart Reviwed. Low nutrition risk.
[2017-09-11 14:15] VITALS: BP 155/69
[2017-09-11 14:32] VITALS: BP 155/69
[2017-09-11] MEDS ORDERED: FLAGYL500 MG PO (14:43)
[2017-09-11] MEDS ORDERED: CIPRO500 MG PO (14:43)
[2017-09-11] MEDS ORDERED: SYNTHROID50 MCG PO (14:49)
[2017-09-11 15:44] VITALS: BP 149/78
--- NOTE | 2017-09-11 16:14 | NUR ---
ASSUMED CARE OF PATIENT AFTER MORNING REPORT. ASSESSMENT COMPLETED AND CHARTED. VSS ON ROOM AIR. ALERT AND ORIENTED X4. PATEINT HAS HAD NO COMPLAINTS OF NAUSEA OR PAIN THIS SHIFT. PO ANTIBIOTICS GIVEN ORDERED. PATIENT TOLERATED REGULAR DIET WELL. PATIENT DISCHARGED AT 1610 WITH HER DAUGHTER. ALL PERSONAL BELONGINGS LEFT WITH PATIENT. PRESCRIPTIONS AND DISCHARGE INFORMATION SENT WITH PATIENT UPON DISCHARGE.
--- NOTE | 2017-09-11 16:30 | NUR ---
FAXED DISCHARGE ORDERS AND FACE TO FACE,SURGERYS PROGRESS NOTE FROM TODAY TO INTAKE AT [facility] [phone]. HAD NOTIFIED AGUSTÍN EARLIER IN THE DAY THAT PT.WAS DISCHARING TODAY.
--- NOTE | 2017-10-15 10:58 | OP ---
[address] [address] OPERATIVE REPORT Name: CRISTINA KNUTSON Room: [address] IN M.R.#: [id number] Admission: 09/05/17 Attend Phys: Benjamin Hunt MD Discharge: 09/11/17 Date of : 38 Report #: [id number] THIS REPORT FOR: //name// CC: Benjamin Hunt [facility] DICTATED BY: Glo Mendoza DO DATE OF SERVICE: 09/05/2017 PREOPERATIVE DIAGNOSIS: Abdominal pain and peritonitis. POSTOPERATIVE DIAGNOSIS: Abdominal pain and peritonitis. SURGEON: Glo Mendoza DO, PGY5 SUPERVISING SURGEON: Eagle Watkins DO NEUROLOGY PROFESSOR: Ramón Qiu, PGY1 PROCEDURE: Diagnostic laparoscopy converted to laparotomy, lysis of adhesions, irrigation and placement of GRECIA drain and STERLING VAC. ANESTHESIA: General endotracheal. BLOOD LOSS: 50 mL. SPECIMENS: None. COMPLICATIONS: None. DISPOSITION: PACU to med/surg. OPERATIVE DETAILS: After obtaining proper informed consent, the patient was brought to the operating room and laid supine on the operating table. She was sedated and intubated under the benefit of general anesthesia. She had been receiving antibiotics on the floor prior to surgery. Abdomen was prepped and draped in the usual sterile fashion and timeout was performed. Infraumbilical incision was made and dissection of subcutaneous tissue was carried out to the level of the fascia. A nicking incision was made in the fascia and 2 Zeeshan clamps were used to grasp the fascia and it was elevated and fascial incision was extended slightly inferiorly and superiorly and peritoneum was entered bluntly with a hemostat. Finger was placed in the abdomen and peritoneum was swept and found to be free of adhesions. Kleber trocar was then placed in the abdomen. The abdomen was insufflated. Camera was placed in the abdomen. There were some fairly dense appearing adhesions in the right [place] [address] OPERATIVE REPORT Name: CRISTINA KNUTSON Room: [address] IN [facility].#: [id number] Admission: 09/05/17 Attend Phys: Benjamin Hunt MD Discharge: 09/11/17 Date of : 38 Report #: [id number] right upper quadrant. These were taken down gently with blunt dissection. A 5 mm trocar was placed in the suprapubic position under direct visualization and the adhesions were further taken down. There was a scant amount of fluid in the abdomen, but no gross fecal contamination or abscess cavity. We did attempt to mobilize the small bowel so that we could visualize the ileocolonic anastomosis, but we were unable to visualize it clearly, thus we decided to convert to laparotomy. A midline incision was extended superiorly around the umbilicus through previous mini laparotomy incision from her prior surgery. There was a small subcutaneous pocket of purulent-appearing material. Cultures were obtained of this. Once the incision was extended fully, Pepe wound protector was placed. There were some interloop adhesions in the right upper quadrant overlying the anastomotic site. These were carefully taken down with blunt dissection. The small bowel was run from proximal to distal until we were ultimately able to identify the anastomosis. There was no gross evidence of leak or breakdown of the anastomosis. We did make an attempt to visualize the ovaries bilaterally; however, there is a fair amount of scar tissue. There were no large palpable masses in the pelvis; however, there was some peritoneal seeding palpable greater on the left. We then copiously irrigated the peritoneal cavity with 6 liters of warm saline. A 19-Danish GRECIA drain was placed in the abdomen. Fascia was then closed with #1 looped PDS suture. Midline incision was closed with ирина and STERLING VAC was applied. A GRECIA drain was secured with 2-0 nylon suture. All counts were correct at the end of the case. Drapes were removed and the patient was awoken and extubated and brought to PACU in good condition for further recovery. Dr. Eagle Watkins was present and scrubbed for the entirety of the procedure. <ELECTRONICALLY SIGNED> By: Eagle Watkins DO 10/15/17 1058 2329 [id number] Watkins DO /nt
== END 2017-09-11 16:10 | disposition home health service (06) | DRG 853 ==
LOC: M.ERS 08:13 → M.TBA-ER 09:59 → M.ORTHSURG 09:59
PROVIDERS: Emergency Medicine; Surgery; ADMIT Internal Medicine
PROC: 0W9G00Z Drainage of Peritoneal Cavity with Drainage Device, Open Approach (ICD-10-PCS; principal; 2017-09-05)
PROC: 0DNW0ZZ Release Peritoneum, Open Approach (ICD-10-PCS; principal; 2017-09-05)
PROC: 0WJG4ZZ Inspection of Peritoneal Cavity, Percutaneous Endoscopic Approach (ICD-10-PCS; principal; 2017-09-05)
DX: A41.9 Sepsis, unspecified organism (principal); K65.8 Other peritonitis; K56.609 Unspecified intestinal obstruction, unspecified as to partial versus complete obstruction; E03.9 Hypothyroidism, unspecified; I48.91 Unspecified atrial fibrillation; K52.9 Noninfective gastroenteritis and colitis, unspecified; N18.3 Chronic kidney disease, stage 3 (moderate); I12.9 Hypertensive chronic kidney disease with stage 1 through stage 4 chronic kidney disease, or unspecified chronic kidney disease; E87.5 Hyperkalemia; Z90.49 Acquired absence of other specified parts of digestive tract; Z88.8 Allergy status to other drugs, medicaments and biological substances; Z85.038 Personal history of other malignant neoplasm of large intestine; Z98.49 Cataract extraction status, unspecified eye

== ENCOUNTER 2018-02-19 04:53 | Emergency (ER) | payer MEDICARE, BC ==
[~2018-02-19] VITALS: Ht 170.2 cm; Wt 90.7 kg
[~2018-02-19 04:53] MED LIST changes: +FLAGYL500 MG PO; +SYNTHROID50 MCG PO
[2018-02-19] MEDS ORDERED: PANCREATIC ENZYMES (05:01)
[2018-02-19 05:23] LABS: ABSOLUTE BASOPHILS 0.1 thou/uL (0.0-0.2); ABSOLUTE EOSINOPHILS 0.2 thou/uL (0.0-0.7); ABSOLUTE LYMPHOCYTES 1.9 thou/uL (0.8-5.3); ABSOLUTE MONOCYTES 0.7 thou/uL (0.0-1.2); EOSINOPHILS 3.5 %; HEMATOCRIT 40.6 % (37.0-47.0); HEMOGLOBIN 13.6 gm/dL (12.0-15.0); LYMPHOCYTES 27.1 %; MCHC 33.4 g/dL (28.0-37.0); MCV 89.9 fL (80.0-100.0); MONOCYTES 10.5 %; MPV 7.7 fl. (7.2-11.1); NUCLEATED RBCS 0 /100WBC; PLATELET COUNT* 225 thou/uL (150-400); POLYS 57.9 %; RBC 4.51 mil/uL (4.20-5.00); RDW-CV 13.7 % (10.5-14.5); WBC 6.9 thou/uL (4.0-11.0)
[2018-02-19 05:33] LABS: CALCIUM 8.5 mg/dL (8.5-10.1); CREATININE 1.2 mg/dL (0.6-1.3); POTASSIUM 4.1 mmol/L (3.5-5.1)
[2018-02-19 05:37] LABS: ALBUMIN 3.2 g/dL (3.4-5.0); TOTAL BILIRUBIN 0.4 mg/dL (<0.1-1.0); TOTAL PROTEIN 7.1 g/dL (6.4-8.2)
[2018-02-19 06:43] LABS: URINE BILIRUBIN NEGATIVE (Negative); URINE BLOOD NEGATIVE (Negative); URINE CLARITY CLEAR; URINE COLOR YELLOW; URINE GLUCOSE-RANDOM NEGATIVE (Negative); URINE KETONES NEGATIVE (Negative); URINE LEUKOCYTES-REFLEX NEGATIVE (Negative); URINE NITRITE-REFLEX NEGATIVE (Negative); URINE PROTEIN NEGATIVE (Negative); URINE UROBILINOGEN 0.2 E.U./dl (0.2-1.0)
[2018-02-19 07:57] VITALS: BP 156/62
--- NOTE | 2018-02-19 11:17 | EKG ---
[place] [address] ELECTROCARDIOGRAM REPORT Name: CRISTINA KNUTSON [id number] Admission: 02/19/18 Attend Phys: Discharge: 02/19/18 Date of : 38 Report #: [id number] THIS REPORT FOR: //name// [facility] ED Test Date: 2018-02-19 Test Time: 05:10:16 Pat Name: CRISTINA KNUTSON Department: Room: Gender: F Assignment Desk Editor: JANELLE : 1940 Requested By: Lis Mustafa Order Number: [id number] MD: Manfred Romeo Measurements Intervals [place] Rate: 79 P: 25 AR: 166 QRS: -5 QRSD: 90 T: 22 QT: 381 QTc: 437 Interpretive Statements Sinus rhythm Abnormal R-wave progression, early transition Left ventricular hypertrophy Compared to ECG 09/05/2017 15:08:35 Sinus tachycardia no longer present Electronically Signed On 02-19-2018 11:17:33 CDT by Manfred Romeo [email or web address] <ELECTRONICALLY SIGNED> By: Manfred Romeo MD, [facility] 02/19/18 1117 0510 0510 Manfred Romeo MD, FACC /EPI
== END 2018-02-19 07:58 | disposition home or self-care (01) ==
LOC: M.ERS 04:53
PROVIDERS: Emergency Medicine
DX: S00.83XA Contusion of other part of head, initial encounter (principal); S60.032A Contusion of left middle finger without damage to nail, initial encounter; S90.122A Contusion of left lesser toe(s) without damage to nail, initial encounter; E03.9 Hypothyroidism, unspecified; I48.91 Unspecified atrial fibrillation; I10 Essential (primary) hypertension; Z90.49 Acquired absence of other specified parts of digestive tract; Z85.43 Personal history of malignant neoplasm of ovary; Z85.038 Personal history of other malignant neoplasm of large intestine; Z88.6 Allergy status to analgesic agent; Z88.8 Allergy status to other drugs, medicaments and biological substances; W06.XXXA Fall from bed, initial encounter; Y93.89 Activity, other specified; Y92.89 Other specified places as the place of occurrence of the external cause; Y99.8 Other external cause status

== ENCOUNTER 2018-04-28 08:55 | Emergency (ER) | payer MEDICARE, BC ==
[~2018-04-28] VITALS: Ht 170.2 cm; Wt 96.2 kg
[~2018-04-28 08:55] MED LIST changes: +PANCREATIC ENZYMES
[2018-04-28 09:15] LABS: URINE BILIRUBIN NEGATIVE (Negative); URINE BLOOD TRACE (Negative); URINE CLARITY CLEAR; URINE COLOR YELLOW; URINE GLUCOSE-RANDOM NEGATIVE (Negative); URINE KETONES NEGATIVE (Negative); URINE NITRITE-REFLEX NEGATIVE (Negative); URINE PROTEIN NEGATIVE (Negative); URINE UROBILINOGEN 0.2 E.U./dl (0.2-1.0)
[2018-04-28 09:16] LABS: URINE LEUKOCYTES-REFLEX 2+ (Negative)
[2018-04-28 09:22] LABS: CRYSTALS None Seen /LPF (None Seen); SQUAMOUS 0-3 Few /LPF (0-3)
[2018-04-28 09:23] LABS: URINE RBC 0-2 Rare /HPF (0-2); URINE WBC-REFLEX 6-15 Few /HPF (0-5)
[2018-04-28 09:24] LABS: BACTERIA-REFLEX 1-9 Few /HPF (None Seen); CASTS None Seen /LPF (None Seen)
[2018-04-28 09:27] LABS: ABSOLUTE BASOPHILS 0.1 thou/uL (0.0-0.2); ABSOLUTE EOSINOPHILS 0.3 thou/uL (0.0-0.7); ABSOLUTE LYMPHOCYTES 1.6 thou/uL (0.8-5.3); ABSOLUTE MONOCYTES 0.7 thou/uL (0.0-1.2); ABSOLUTE NEUTROPHILS 4.8 thou/uL (1.6-8.1); EOSINOPHILS 3.9 %; HEMATOCRIT 40.1 % (37.0-47.0); HEMOGLOBIN 13.4 gm/dL (12.0-15.0); LYMPHOCYTES 21.3 %; MCH 30.2 pg (26.0-34.0); MCHC 33.5 g/dL (28.0-37.0); MCV 90.3 fL (80.0-100.0); MONOCYTES 9.1 %; MPV 8.1 fl. (7.2-11.1); NUCLEATED RBCS 0 /100WBC; PLATELET COUNT* 225 thou/uL (150-400); POLYS 64.7 %; RBC 4.44 mil/uL (4.20-5.00); RDW-CV 13.1 % (10.5-14.5); WBC 7.5 thou/uL (4.0-11.0)
[2018-04-28 09:38] LABS: APTT 38.8 Seconds (25.0-31.3); PROTIME 10.4 Seconds (9.20-11.50)
[2018-04-28 09:42] LABS: ANION GAP 5 mmol/L (7-16); BUN 17 mg/dL (7-18); CALCIUM 8.5 mg/dL (8.5-10.1); CHLORIDE 104 mmol/L (98-107); CO2 27 mmol/L (21-32); CREATININE 1.2 mg/dL (0.6-1.3); GLUCOSE 126 mg/dL (70-99); POTASSIUM 4.2 mmol/L (3.5-5.1); SODIUM 136 mmol/L (136-145)
[2018-04-28 09:57] LABS: ALBUMIN 3.4 g/dL (3.4-5.0); ALKALINE PHOSPHATASE 129 U/L (46-116); LIPASE 151 U/L (73-393); SGOT 15 U/L (15-37); SGPT 14 U/L (30-65); TOTAL BILIRUBIN 0.6 mg/dL (<0.1-1.0); TOTAL PROTEIN 7.4 g/dL (6.4-8.2); TROPONIN-I LEVEL <0.06 ng/mL (<0.06)
[2018-04-28] MEDS ORDERED: PERCOCET 5-3251 EACH PO (11:06)
[2018-04-28 11:20] VITALS: BP 186/70
--- NOTE | 2018-04-28 14:01 | EKG ---
[place] [address] ELECTROCARDIOGRAM REPORT Name: VALE KNUTSONDA MICHELLE Room: [facility]#: [id number] Admission: 04/28/18 Attend Phys: Discharge: 04/28/18 Date of : 38 Report #: [id number] THIS REPORT FOR: //name// [facility] ED Test Date: 2018-04-28 Test Time: 09:30:54 Pat Name: CRISTINA KNUTSON Department: Room: Gender: F Tour Bus Driver: Ghazal NICOLE : 1940 Requested By: Joe Vela Order Number: [id number] MD: Manfred Romeo Measurements Intervals [place] Rate: 64 P: 40 ME: 167 QRS: -1 QRSD: 94 T: 21 QT: 426 QTc: 440 Interpretive Statements Sinus rhythm Abnormal R-wave progression, early transition Compared to ECG 02/19/2018 05:10:16 Left ventricular hypertrophy no longer present Electronically Signed On 04-28-2018 14:01:17 CDT by Manfred Romeo [email or web address] <ELECTRONICALLY SIGNED> By: Manfred Romeo MD, [facility] 04/28/18 1401 9 9 Manfred Romeo MD, [facility] /EPI
== END 2018-04-28 11:21 | disposition home or self-care (01) ==
LOC: M.ERS 08:55
PROVIDERS: Family Medicine
DX: R10.11 Right upper quadrant pain (principal); E03.9 Hypothyroidism, unspecified; I48.91 Unspecified atrial fibrillation; I12.9 Hypertensive chronic kidney disease with stage 1 through stage 4 chronic kidney disease, or unspecified chronic kidney disease; N18.3 Chronic kidney disease, stage 3 (moderate); Z85.038 Personal history of other malignant neoplasm of large intestine; Z85.43 Personal history of malignant neoplasm of ovary; Z88.6 Allergy status to analgesic agent; Z88.8 Allergy status to other drugs, medicaments and biological substances; Z90.49 Acquired absence of other specified parts of digestive tract

== ENCOUNTER → 2018-04-30 | Outpatient (CLI) | payer MEDICARE, BC ==
[~2018-04-30] MED LIST changes: +PERCOCET 5-3251 EACH PO
== END ==
LOC: M.RAD 04-23 09:00
DX: I12.9 Hypertensive chronic kidney disease with stage 1 through stage 4 chronic kidney disease, or unspecified chronic kidney disease (principal); N18.3 Chronic kidney disease, stage 3 (moderate); M85.80 Other specified disorders of bone density and structure, unspecified site; I48.91 Unspecified atrial fibrillation; E03.9 Hypothyroidism, unspecified; Z78.0 Asymptomatic menopausal state

== ENCOUNTER 2018-08-23 10:22 | Inpatient (IN) | payer MEDICARE, BC ==
[~2018-08-23] VITALS: Ht 152.4 cm; Wt 93.9 kg
[~2018-08-23 10:22] MED LIST changes: -PANCREATIC ENZYMES; +PANCREATIC ENZYMES PO
[2018-08-23 10:39] VITALS: BP 128/60
[2018-08-23 10:51] LABS: ABSOLUTE BASOPHILS 0.1 thou/uL (0.0-0.2); ABSOLUTE EOSINOPHILS 0.2 thou/uL (0.0-0.7); ABSOLUTE LYMPHOCYTES 1.4 thou/uL (0.8-5.3); ABSOLUTE MONOCYTES 0.6 thou/uL (0.0-1.2); ABSOLUTE NEUTROPHILS 4.3 thou/uL (1.6-8.1); BASOPHILS 0.8 %; EOSINOPHILS 3.1 %; HEMATOCRIT 40.7 % (37.0-47.0); HEMOGLOBIN 13.5 gm/dL (12.0-15.0); LYMPHOCYTES 21.6 %; MCH 29.6 pg (26.0-34.0); MCHC 33.1 g/dL (28.0-37.0); MCV 89.5 fL (80.0-100.0); MPV 7.9 fl. (7.2-11.1); NUCLEATED RBCS 0 /100WBC; PLATELET COUNT* 257 thou/uL (150-400); POLYS 65.5 %; RBC 4.55 mil/uL (4.20-5.00); RDW-CV 13.8 % (10.5-14.5); WBC 6.6 thou/uL (4.0-11.0)
[2018-08-23 10:52] LABS: URINE BILIRUBIN NEGATIVE (Negative); URINE BLOOD TRACE (Negative); URINE CLARITY CLEAR; URINE COLOR YELLOW; URINE GLUCOSE-RANDOM NEGATIVE (Negative); URINE KETONES NEGATIVE (Negative); URINE LEUKOCYTES-REFLEX NEGATIVE (Negative); URINE NITRITE-REFLEX NEGATIVE (Negative); URINE PROTEIN NEGATIVE (Negative); URINE SPECIFIC GRAVITY 1.025 (1.005-1.030); URINE UROBILINOGEN 0.2 E.U./dl (0.2-1.0)
[2018-08-23 11:01] LABS: ANION GAP 9 mmol/L (7-16); BUN 26 mg/dL (7-18); CALCIUM 8.8 mg/dL (8.5-10.1); CHLORIDE 100 mmol/L (98-107); CO2 25 mmol/L (21-32); CREATININE 1.8 mg/dL (0.6-1.3); GLUCOSE 169 mg/dL (70-99); POTASSIUM 4.8 mmol/L (3.5-5.1); SODIUM 134 mmol/L (136-145)
[2018-08-23 11:08] LABS: ALBUMIN 3.3 g/dL (3.4-5.0); ALKALINE PHOSPHATASE 151 U/L (46-116); LIPASE 148 U/L (73-393); SGOT 11 U/L (15-37); SGPT 12 U/L (30-65); TOTAL BILIRUBIN 0.4 mg/dL (<0.1-1.0); TOTAL PROTEIN 7.6 g/dL (6.4-8.2); TROPONIN-I LEVEL <0.06 ng/mL (<0.06)
[2018-08-23 14:43] VITALS: BP 122/37
--- NOTE | 2018-08-23 17:47 | NUR ---
PATIENT PROGRESSING TOWARDS GOALS. DENIED NAUSEA THROUGHOUT REMAINDER OF SHIFT. DOES HAVE VERY POOR APPETITE, EVEN ON CLEAR LIQUIDS. PATIENT HAS POOR WATER INTAKE. NS AT 100 ML/HR INFUSING IN RIGHT HAND. FAMILY AT BEDSIDE ENCOURAGING PATIENT INTAKE. PROVIDED WITH SPRITE AND POPCICLE PER PATIENT FAMILY. UP AD JOSE. ROOM AIR. TRACING NSR ON VOICE AND DATA TECHNICIAN. DENIES FURTHER NEEDS FROM NURSING STAFF AT THIS TIME.
[2018-08-23 20:00] VITALS: BP 142/51
[2018-08-24] VITALS (7 sets, daily range): BP systolic 118–173; BP diastolic 39–70
--- NOTE | 2018-08-24 01:58 | NUR ---
RECIEVED REPORT AND ASSUMED CARE AT 1900. SHEETING PULLER IN PLACE. DIASTOLIC BP SOFT, OTHER THAN THAT VITAL SIGNS STABLE. PT DENIES ANY PAIN AT THIS TIME. ASSESSMENT COMPLETED, DISCUSSED PLAN OF CARE, PT UNDERSTANDS. PT UP ADLIB. BED LOCKED, AND CALL LIGHT WITHIN REACH. FALL PRECAUTIONS IN PLACE. HOURLY ROUNDING DONE AND ALL NEEDS MET. NURSING WILL CONTINUE TO MONITOR.
[2018-08-24 05:22] LABS: HEMATOCRIT 37.2 % (37.0-47.0); HEMOGLOBIN 12.4 gm/dL (12.0-15.0); MCHC 33.4 g/dL (28.0-37.0); MCV 89.9 fL (80.0-100.0); MPV 8.3 fl. (7.2-11.1); RBC 4.13 mil/uL (4.20-5.00); RDW-CV 13.4 % (10.5-14.5); WBC 6.3 thou/uL (4.0-11.0)
[2018-08-24 05:33] LABS: CALCIUM 8.1 mg/dL (8.5-10.1); CREATININE 1.4 mg/dL (0.6-1.3); MAGNESIUM 2.4 mg/dL (1.8-2.4); POTASSIUM 4.7 mmol/L (3.5-5.1)
--- NOTE | 2018-08-24 07:45 | NUR ---
ASSUMED CARE OF PT ASSESSED AND DOCUMENTED. PT IS ON CARDIAC MONITER TRACING SR HR 65. PT IS A&O WITH NO C/O PAIN OR N&V. PT IS AFEBRILE AND ON ROOM AIR. BP IN RA WAS 118/39. BP IN L LEG TAKEN AND WAS 169/51. BED IS IN LOW POSITION CALL LIGHT IS IN REACH. WM.
--- NOTE | 2018-08-24 16:59 | NUR ---
PT HAS RESTED IN HER ROOM THIS SHIFT WITH FRIENDS AT BEDSIDE. PT HAS HAD NO S OR SX OF ADVERSE REACTION TO ABT. SHE HAS HAD NO C/O OF N&V. EDUCATION GIVEN ON DEMAND. HOURLY ROUNDING CONTINUES.
--- NOTE | 2018-08-25 02:03 | NUR ---
RECIEVED REPORT AND ASSUMED CARE AT 1900. CREATIVE PROJECT MANAGER IN PLACE. DISTOLIC BP SOFT, OTHER THAN THAT VITAL SIGNS STABLE. PT IS UP ADLIB. PT DENIES ANY PAIN AT THIS TIME. ASSESSMENT COMPLETED, DISCUSSED PLAN OF CARE, PT UNDERSTANDS. BED LOCKED AND CALL LIGHT WITHIN REACH. FALL PRECAUTIONS IN PLACE. HOURLY ROUNDING DONE AND ALL NEEDS MET. NURSING WILL CONTINUE TO MONITOR.
[2018-08-25 03:47] VITALS: BP 124/56
--- NOTE | 2018-08-25 04:29 | NUR ---
PT DOES NOT WANT TO BE DNR. SHE WANTS TO BE FULL CODE STATUS. SHE WANTS TO TALK WITH HER FAMILY BEFORE CHANGING HER STATUS TO DNR. PARMINDER MOSES WAS WITNESS TO THIS STATEMENT.
[2018-08-25 05:07] LABS: CALCIUM 8.2 mg/dL (8.5-10.1); CREATININE 1.3 mg/dL (0.6-1.3); POTASSIUM 5.2 mmol/L (3.5-5.1)
[2018-08-25 09:05] VITALS: BP 136/49
[2018-08-25 11:07] LABS: CA 125 74.1 U/mL (0.0-38.1)
[2018-08-25] MEDS ORDERED: ZOFRAN ODT4 MG DISSOLVE (11:34)
[2018-08-25 11:46] VITALS: BP 136/49
[2018-08-25 12:01] VITALS: BP 174/60
--- NOTE | 2018-08-25 12:22 | NUR ---
MET WITH PT AND DTR TO DISCUSS HOME SITUATION/DC PLANNING. PT LIVE ALONE, HAS SEVERAL CHILDREN AND GRANDCHILDREN WHO ARE SUPPORTIVE AND ASSIST NEEDED. PT IS INDEPENDENT WITH ADLS, USES NO EQUIPMENT. SHE PLANS TO FOLLOW UP WITH HER ONCOLOGIST RE: TX PLAN. PT DECLINES HH.
--- NOTE | 2018-08-25 12:47 | NUR ---
PT REMAINED ALERT AND ORIENTED. PT DISCHARGE INFORMATION, PRESCRITPION, AND CARE NOTES GIVEN. IV REMOVED. PT BELONGINGS GATHERED. PT LEFT WITH CHILD VIA WHEELCHAIR TO HOME CARE. PT REFUSED HOME HEALTH AT THIS TIME. PT NOTIFIED TO FOLLOW UP WITH ONCOLOGY AND WITH PCP IN 1-2 WEEKS. FALL RISK PRECAUTIONS IN PLACE. HOURLY ROUNDING COMPLETED.
--- NOTE | 2018-08-25 12:49 | NUR ---
PT BLOOD PRESSURE ELEVATED, NOTIFIED. NO NEW ORDERS.
[2018-08-25 12:56] VITALS: BP 136/49
== END 2018-08-25 12:57 | disposition home or self-care (01) | DRG 374 ==
LOC: M.ERS 10:22 → M.TBA-ER 12:55 → M.2W 14:50
PROVIDERS: Internal Medicine Hematology & Oncology; Physician Assistant; ADMIT Family Medicine
DX: C18.9 Malignant neoplasm of colon, unspecified (principal); N17.0 Acute kidney failure with tubular necrosis; N39.0 Urinary tract infection, site not specified; C78.6 Secondary malignant neoplasm of retroperitoneum and peritoneum; K86.1 Other chronic pancreatitis; C56.9 Malignant neoplasm of unspecified ovary; N18.3 Chronic kidney disease, stage 3 (moderate); E86.0 Dehydration; I12.9 Hypertensive chronic kidney disease with stage 1 through stage 4 chronic kidney disease, or unspecified chronic kidney disease; I48.91 Unspecified atrial fibrillation; E03.9 Hypothyroidism, unspecified; Z90.49 Acquired absence of other specified parts of digestive tract; Z98.49 Cataract extraction status, unspecified eye; Z88.2 Allergy status to sulfonamides; Z88.6 Allergy status to analgesic agent; Z87.891 Personal history of nicotine dependence

== ENCOUNTER → 2018-09-02 | Outpatient (CLI) | payer MEDICARE, BC ==
[~2018-09-02] MED LIST changes: +ZOFRAN ODT4 MG DISSOLVE
--- NOTE | 2018-09-08 11:06 | PATH ---
[address] [address] PATHOLOGY RPT PROCEDURE Name: CRISTINA KNUTSON Room: [facility] Zepeda#: [id number] Admission: 09/02/18 Date of : 39 Discharge: Report #: [id number] Path Case #: [id number] [facility] Accession Number: [id number] . 01 Material submitted: . RIGHT RETRO EXTERNAL ILIAC LYMPH NODE . 01 Clinical history: . 2.74 x 2.16 x 2.17 cm Hx of colon and ovarian CA . 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 - See comment. . (SHA:derek; 09/04/2018) QLM/09/04/2018 . 02 Comment: Immunoperoxidase stains for CK7, CK20, CDX2, PAX 8, HBME-1, CEA polyclonal, WT1 and p53 are being done. An additional report will follow. . This case is also reviewed by Dr. Leidy Del Cid. History of colon cancer and ovarian cancer noted. This case was also discussed with Dr.Elia Ellington on 09/04/2018 at 3pm. . ([facility]:mm; 09/04/2018) . 02 Addendum: . Immunoperoxidase stains reveal: . HBME-1 - Positive PAX-8 - Positive CK19 - Positive WT-1 - Nuclear and cytoplasmic positive CK20 - Negative CK7 - Positive CDX2 - Negative p53 - Positive CEA polyclonal - Negative. Calretinin - Negative . Based on the positive WT-1, CK7, PAX8, HBME and p53 and negative CDX2 and CK20, this metastatic carcinoma is most likely originating from the ovarian primary. ([facility]/; 09/05/2018) [place] [address] PATHOLOGY RPT PROCEDURE Name: CRISTINA KNUTSON [facility] [id number] Admission: 09/02/18 Date of : 38 Discharge: Report #: [id number] Path Case #: [id number] . Professional services performed by [facility] at [facility], [address] [place] [address]. [facility] performed by [facility] at [address] [place] [address], [address], [place] [address]. QTP/09/08/2018 Addendum Electronically Signed by Tavon Weinberg MD. Pathologist . 02 Electronically signed: . Tavon Weinberg MD, Pathologist NPI- [id number] . 01 Gross description: . Received in formalin labeled "Cristina Knutson, Rt retro external iliac lymph node," is a needle core of posadas soft tissue measuring 1.7 cm in length by 0.1 cm in diameter, admixed with multiple smaller, posadas needle core fragments and blood clot measuring 0.5 x 0.3 x 0.1 cm in aggregate dimensions. The specimen is submitted entirely in cassettes A1 and A2. . A portion of the specimen is also received in RPMI solution. This portion is forwarded to an outside laboratory for flow cytometry studies. ([facility]; 09/03/2018) XDC/XDC . 02 Microscopic: . Special studies report received from [facility], [address] [place] [address], [address], [place], [address], on case [id number], labeled with their number [id number], dated 09/04/2018. . Flow Cytometry: Hematologic Neoplasia Assessment . Clinical History History of colon and ovarian cancer . Indication for Study Evaluation for hematolymphoid neoplasia . Specimen Lymph Node, Right Retro External Iliac . Viability 91% (7AAD exclusion) . Interpretation Lymph Node, Right Retro External Iliac : - No significant lymphoid immunophenotypic abnormalities detected (see comment). [place] [address] PATHOLOGY RPT PROCEDURE Name: CRISTINA KNUTSON Room: [facility] Zepeda#: [id number] Admission: 09/02/18 Date of : 38 Discharge: Report #: [id number] Path Case #: [id number] Flow cytometric analysis detected no immunophenotypic evidence of B-cell or T-cell lymphoproliferative disorders. Non-hematolymphoid neoplasms, Hodgkin lymphoma, some large cell lymphomas, and some T-cell lymphomas cannot be excluded based solely on flow cytometric analysis data. Correlation with available clinical, laboratory, and morphologic/immunohistochemical analysis is recommended for an accurate diagnosis. . Populations Analyzed Lymphocytes: 85% B-cells: 22.5%, polytypic/polyclonal sIg light chain pattern T-cells: no significant abnormalities of the markers tested CD4:CD8: 5.3 NK cells: 1.2% CD45 Negative 14% No significant reactivity with the markers tested Events/Debris: (may represent non-hematolymphoid cells, degenerated cells, debris, unlysed red blood cells, etc.) . Morphologic Evaluation A slide was reviewed for quality assurance purposes only. . Specimen Description Total cell yield: 2.54 x 10 and 6 . Reagent(s) Used CD2, CD3, CD4, CD5, CD7, CD8, CD10, CD11b, CD19, CD20, CD23, CD30, CD38, CD43, CD45, CD56, CD57, FMC-7, HLA-DR, kappa, lambda . at [employer], [facility]. Jose Oliver MD Pathologist . Intended Use Flow cytometry is optimally used to immunophenotypically characterize abnormal populations when they are detected. Negative flow cytometry results do not exclude lymphoma or neoplasia. Possible false negative flow cytometry results may occur in, but are not limited to, the following: neoplastic cells in Hodgkin lymphoma are not typically adequately represented by routine clinical flow cytometry; neoplastic cells may be lost or inadequately represented due to degeneration, sample processing, sampling artifact, or patchy involvement; plasma cells are typically underrepresented by flow cytometry; immature cells/blasts may be underrepresented due to hemodilution; myeloproliferative disorders and low grade myelodysplasia may not have immunophenotypic abnormalities or increased blasts. Correlation with all available clinical, laboratory, and morphologic data is always necessary to assess for the possibility of false negative flow cytometry results and [place] [address] PATHOLOGY RPT PROCEDURE Name: CRISTINA KNUTSON Room: [facility].#: [id number] Admission: 09/02/18 Date of : 39 Discharge: Report #: [id number] Path Case #: [id number] Each marker in this analysis was used to assess for potential antigenic abnormalities or to evaluate detected abnormalities. . Disclaimer(s) This test was performed at [employer]. at [address], [address] - Biometric Technician: Kody Rice MD. [employer] is a business unit of [employer] a wholly-owned subsidiary of [employer]. . Any image or images that accompany this report are computer help desk representative images only and should not be used to render a diagnosis. . This test was developed and its performance characteristics determined by [employer]. It has not been cleared or approved by the Food and Drug Administration (FDA). The FDA has determined that such clearance or approval is not necessary. . For inquiries, the physician may contact Lab: [phone] . A complete copy of the report is on file. . Professional services performed by [employer] at [address], [place] [address]. Technical services performed by [employer]. at [address], [place] [address]. . ([facility] 09/04/2018) . . . 02 Pathologist provided ICD-10: C77.5, Z85.038, Z85.43 . 02 CPT . 402222, O82662, P91115 Specimen Comment: A courtesy copy of this report has been sent to Specimen Comment: [phone], , . Specimen Comment: Report sent to , DR MEDINA / DR CHADWICK Specimen Comment: A duplicate report has been generated due to demographic updates. Performed at: [address], [place], [place] [id number] MD Keith Sylvester MD Phone: [phone] Performed at: [address] [id number] [place] [id number] PATHOLOGY RPT PROCEDURE Name: CRISTINA KNUTSON Room: [facility].#: [id number] Admission: 09/02/18 Date of : 38 Discharge: Report #: [id number] Path Case #: [id number] MD Herbie Dubois MD Phone: [phone]
== END ==
LOC: M.ULTRA 11:16
DX: C77.2 Secondary and unspecified malignant neoplasm of intra-abdominal lymph nodes (principal); C80.1 Malignant (primary) neoplasm, unspecified

== ENCOUNTER 2018-12-12 10:54 | Inpatient (IN) | payer MEDICARE, BC ==
[~2018-12-12] VITALS: Ht 167.6 cm; Wt 92.4 kg
[2018-12-12 11:03] VITALS: BP 157/72
[2018-12-12 11:53] LABS: ABSOLUTE EOSINOPHILS 0.1 thou/uL (0.0-0.7); ABSOLUTE LYMPHOCYTES 1.1 thou/uL (0.8-5.3); ABSOLUTE MONOCYTES 0.8 thou/uL (0.0-1.2); ABSOLUTE NEUTROPHILS 5.8 thou/uL (1.6-8.1); BASOPHILS 0.2 %; HEMATOCRIT 36.7 % (37.0-47.0); HEMOGLOBIN 12.2 gm/dL (12.0-15.0); LYMPHOCYTES 13.8 %; MCH 29.9 pg (26.0-34.0); MCHC 33.1 g/dL (28.0-37.0); MCV 90.2 fL (80.0-100.0); MONOCYTES 10.2 %; MPV 7.6 fl. (7.2-11.1); NUCLEATED RBCS 0 /100WBC; PLATELET COUNT* 265 thou/uL (150-400); POLYS 74.8 %; RBC 4.07 mil/uL (4.20-5.00); RDW-CV 16.3 % (10.5-14.5); WBC 7.8 thou/uL (4.0-11.0)
[2018-12-12 12:01] LABS: ANION GAP 9 mmol/L (7-16); BUN 16 mg/dL (7-18); CALCIUM 8.5 mg/dL (8.5-10.1); CHLORIDE 101 mmol/L (98-107); CO2 25 mmol/L (21-32); CREATININE 1.3 mg/dL (0.6-1.3); GLUCOSE 157 mg/dL (70-99); POTASSIUM 3.8 mmol/L (3.5-5.1); SODIUM 135 mmol/L (136-145)
[2018-12-12 12:10] LABS: PROTIME 10.5 Seconds (9.20-11.50)
[2018-12-12 12:13] LABS: ALBUMIN 2.8 g/dL (3.4-5.0); ALKALINE PHOSPHATASE 111 U/L (46-116); LIPASE 186 U/L (73-393); PHOSPHORUS* 3.1 mg/dL (2.5-4.9); SGOT 19 U/L (15-37); SGPT 17 U/L (30-65); TOTAL BILIRUBIN 0.4 mg/dL (<0.1-1.0); TOTAL PROTEIN 6.9 g/dL (6.4-8.2); TROPONIN-I LEVEL <0.06 ng/mL (<0.06)
[2018-12-12 12:14] LABS: APTT 166.9 Seconds (25.0-31.3)
[2018-12-12 13:15] LABS: INFLUENZA A ANTIGEN None Detected (None Detect); INFLUENZA B ANTIGEN None Detected (None Detect)
--- NOTE | 2018-12-12 15:24 | EKG ---
[place] [address] ELECTROCARDIOGRAM REPORT Name: CRISTINA KNUTSON Room: [place] [address] ADM IN M.R.#: [id number] Admission: 12/12/18 Attend Phys: Kathy Escalera Discharge: Date of : 39 Report #: [id number] THIS REPORT FOR: //name// [facility] ED Test Date: 2018-12-12 Test Time: 12:16:32 Pat Name: CRISTINA KNUTSON Department: Room: [facility] Gender: F Billet Straightener: Ghazal SIU : 1940 Requested By: Erika Orellana Order Number: [id number] MD: Manfred Romeo Measurements Intervals [place] Rate: 81 P: 40 [place]: 148 QRS: -8 QRSD: 90 T: 40 QT: 418 QTc: 486 Interpretive Statements Sinus rhythm Abnormal R-wave progression, early transition Left ventricular hypertrophy Borderline prolonged QT interval Compared to ECG 04/28/2018 09:30:54 Left ventricular hypertrophy now present Electronically Signed On 12-12-2018 15:24:28 CDT by Manfred Romeo [email or web address] <ELECTRONICALLY SIGNED> By: Manfred Romeo MD, [facility] 12/12/18 1524 1216 1216 Manfred Romeo MD, [facility] /EPI
[2018-12-12 16:42] VITALS: BP 184/79
[2018-12-12 19:48] LABS: URINE BILIRUBIN NEGATIVE (Negative); URINE BLOOD 1+ (Negative); URINE COLOR YELLOW; URINE GLUCOSE-RANDOM NEGATIVE (Negative); URINE KETONES TRACE (Negative); URINE LEUKOCYTES-REFLEX NEGATIVE (Negative); URINE NITRITE-REFLEX NEGATIVE (Negative); URINE PROTEIN TRACE (Negative); URINE UROBILINOGEN 0.2 E.U./dl (0.2-1.0)
[2018-12-12 19:50] LABS: URINE CLARITY HAZY
[2018-12-12 19:57] LABS: CASTS None Seen /LPF (None Seen); CRYSTALS None Seen /LPF (None Seen); SQUAMOUS >10 Many /LPF (0-3); URINE RBC 0-2 Rare /HPF (0-2); URINE WBC-REFLEX 0-5 Rare /HPF (0-5)
[2018-12-12 20:00] VITALS: BP 150/49
--- NOTE | 2018-12-12 20:56 | H ---
[address] [address] HISTORY AND PHYSICAL Name: CRISTINA KNUTSON Room: [place] [address] ADM IN M.R.#: [id number] Admission: 12/12/18 Attend Phys: Kathy Escalera Discharge: Date of : 38 Report #: [id number] THIS REPORT FOR: //name// CC: Nubia Carvalho DATE OF SERVICE: 12/12/2018 CHIEF COMPLAINT: Nausea, vomiting and diarrhea. HISTORY OF PRESENT ILLNESS: The patient is a 78-year-old female who has history of peritoneal carcinomatosis, ovarian cancer and colon cancer, who presented to us for nausea and vomiting. The patient states that she was placed on IV chemo and developed anaphylaxis. The patient then was switched over to p.o. chemo which she cannot remember the name. She could not take it after one dose, she started having nausea, vomiting, and diarrhea. She could not keep anything down, some abdominal cramping and was presented to the Emergency Room Department and had a CAT scan of the abdomen done, which showed worsening of peritoneal carcinomatosis adnexal masses and there is right deep inguinal metastatic adenopathy. The patient is being admitted for further management. The patient tells me that she wants to stop chemo and just be palliative, but not hospice yet. She just wants to see if she can eat as she has not been able to at home. PAST MEDICAL HISTORY: Includes history of AFib and has been on sotalol for that. She was treated with colon cancer and have hypertension. She also has ovarian cancer and peritoneal carcinomatosis. CKD stage 3, history of pancreatitis and hypothyroidism. PAST SURGICAL HISTORY: Tonsillectomy, cataract surgery, umbilical hernia repair with appendectomy, cholecystectomy. Polyp removed from the uterus. FAMILY HISTORY: Hypertension, borderline diabetes. SOCIAL HISTORY: The patient lives by herself. She denies any smoking, alcohol or drug use. MEDICATIONS: That she takes include levothyroxine 50 mcg daily and sotalol 80 mg b.i.d. ALLERGIES: METFORMIN, SITAGLIPTIN, ASPIRIN and SULFA. REVIEW OF SYSTEMS: The patient denies any fever or chills. She denies any cough, cold symptoms. Denies any chest pain, shortness of breath. Her main complaint is just the nausea, vomiting, abdominal pain and diarrhea. A 12-point review of system unremarkable [place] [address] HISTORY AND PHYSICAL Name: CRISTINA KNUTSON Room: [address] IN [facility]#: [id number] Admission: 12/12/18 Attend Phys: Kathy Escalera Discharge: Date of : 38 Report #: [id number] PHYSICAL EXAMINATION: VITAL SIGNS: Temperature is 36.76, heart rate of 90, respiratory rate 18, blood pressure is 162/78, 96% on room air. GENERAL: The patient is alert. She is oriented x 3, not in acute respiratory distress. HEENT: Normocephalic, atraumatic. Nares patent. Clear pharynx. NECK: Supple. No lymphadenopathy. CARDIOVASCULAR: Normal rate, regular rhythm. No murmurs noted. RESPIRATORY: Clear to auscultation bilaterally. No wheeze, no crackles. GASTROINTESTINAL: Abdomen is soft. She does have some mild diffuse tenderness, good positive bowel sounds. No organomegaly. GENITOURINARY: Deferred. MUSCULOSKELETAL: Fair strength. NEUROLOGIC: Grossly normal. PSYCHIATRIC: The patient is calm and cooperative. LABORATORY DATA: Reviewed and CBC showed a white count of 7.8, hemoglobin 12.2, platelet count is 265,000. INR is 1. Chemistry showed a sodium 135, potassium is 3.8, chloride is 101, carbon dioxide 25, anion gap is 9, BUN 16, creatinine is 1.3, and glucose is 157. Lactic acid is 0.8, calcium is 8.5, phosphorus 3.1, magnesium is 2. Total bilirubin is 0.4, AST 19, ALT 17, alkaline phosphatase 111. Troponin is 0.06. Total protein 6.9, albumin is 2.8, lipase 186. UA is pending. IMAGING STUDIES: Chest x-ray showed no acute cardiopulmonary process. CT scan of the abdomen done showed worsening of peritoneal carcinomatosis, bilateral cystic adnexal mass and metastatic adenopathy. IMPRESSION: 1. The patient is a 78-year-old lady who presented to us here for intractable nausea and vomiting and diarrhea, likely secondary to chemo medications. 2. Worsening peritoneal carcinomatosis. 3. Known colon cancer, ovarian cancer with peritoneal carcinomatosis. 4. Dehydration. 5. Weakness secondary to above. 6. Known hypothyroidism. 7. Known AFib, not on anticoagulation, but on sotalol. PLAN: The patient will be admitted. I expect this patient is going to be here more than 2 midnights. We will hydrate her. We will give her normal saline. We will give antiemetics and start her on clear liquid and advance it as needed. We will follow UA to see if she has developed urinary tract infection. We will start antibiotics if she does. We will resume her medications. Discussed with the patient regarding code status as she wants to be a no code. She is not ready to be at hospice, but she does want to be on palliative care when she gets out of here. <ELECTRONICALLY SIGNED> By: Stefanie Carvalho MD 12/12/18 2056 1519 [id number] Carvalho MD /nt
[2018-12-12 22:20] VITALS: BP 150/49
[2018-12-12 23:00] VITALS: BP 179/78
[2018-12-13 04:00] VITALS: BP 181/90
[2018-12-13 05:17] LABS: CALCIUM 7.7 mg/dL (8.5-10.1); CREATININE 1.1 mg/dL (0.6-1.3); POTASSIUM 3.1 mmol/L (3.5-5.1)
[2018-12-13 07:17] LABS: CALCIUM 7.7 mg/dL (8.5-10.1); MAGNESIUM 1.7 mg/dL (1.8-2.4); POTASSIUM 3.3 mmol/L (3.5-5.1)
--- NOTE | 2018-12-13 07:58 | NUR ---
RECEVIED REPORT FROM KILEY IN ED @ 2220. PT ARRIVED TO ROOM 223 @ 2255. PT A+O X 3. PT REPORTED DIARRHEA WAS IMPROVING. NO PAIN OR DISCOFORT. PT SLEPT THROUGH MOST OF THE NIGHT. CALL LIGHT IN REACH. HOURLY ROUNDING FOR SAFETY.
[2018-12-13 08:00] VITALS: BP 135/78
--- NOTE | 2018-12-13 12:55 | NUR ---
Pt is A&O. Resides at home alone, niece in room at bedside. Pt reports being independent. Pt has a walker and cane but does not currently use either. Hx of HH. No hx of SNF. CM spoke with Pt's dtr on phone, requested an info visit with a palliative care agency, stated that they are not quite ready for hospice, Pt continues to seek CA treatment at . Dtr wanted either [facility], [facility], CM informed that neither [facility] or [facility] have palliative care components. Faxed referral to Hospice, awaiting call back to determine what time rep from hospice will be availabl to come out for an info visit. Following.
[2018-12-13 15:51] VITALS: BP 172/79
--- NOTE | 2018-12-13 17:22 | NUR ---
PT RESTING IN BED THROUGHOUT SHIFT. CALLS APPROPRIATELY FOR ASSIST TO BSC. FAMILY AT BS AND UPDATED ON PLAN OF CARE. FAMILY MET WITH HOSPICE TODAY. POOR APPETITE. PT ENCOURAGED TO CALL AND ORDER FOOD OF HER CHOICE. DENIES PAIN OR NAUSEA. MULTIPLE LOOSE STOOLS
[2018-12-13 19:53] VITALS: BP 150/75
[2018-12-14] VITALS (7 sets, daily range): BP systolic 153–198; BP diastolic 62–83
--- NOTE | 2018-12-14 04:02 | NUR ---
ASSUMED PT CARE AT APPROX 1930. PT IS AWAKE AND ORIENTED X4. VSS ON ROOM AIR. REASSESSMENT DONE AND CHARTED. ELEVATED BP NOTED AT 0000 (198/82) HYDRALAZINE 10MG IV GIVEN PER MAR ORDERED BY DR CHOI. REPEAT BP IS 163/81. ELECTROLYTE REPLACEMENT ONGOING. PT WAS ABLE TO SLEEP MOST OF THE NIGHT. STILL HAVING LOOSE/WATERY STOOLS. STOOL SAMPLE SENT TO LAB FOR C-DIFF ANALYSIS. CALL LIGHT WITHIN REACH. HOURLY ROUNDING DONE FOR PT SAFETY.
[2018-12-14 05:29] LABS: MAGNESIUM 2.2 mg/dL (1.8-2.4); POTASSIUM 3.6 mmol/L (3.5-5.1)
--- NOTE | 2018-12-14 16:32 | NUR ---
assumed pt care report received from nurse pt is aox4 medsurg status.on ra and saturation is 95% . ivf infusing, pt complains of nausea. zofran given as needed. fnetanyl given this afternoon for pain in r upper abdomen. bp has been stable during this shift. will continue to momitor
--- NOTE | 2018-12-14 17:01 | NUR ---
PT. DAUGHTER OUT TO NURSING STATION. STATES THAT PT. FINAL DECISION WAS TO GO TO [facility] FOR 30 DAYS IF BED AVAILABLE AND SEE IF SHE CAN REGAIN SOME STRENGTH. THEN DC TO HOME THERE AFTER. INFORMED THAT IT WOULD PROBABLY BE SATURDAY BEFORE PT. WOULD BE ABLE TO TRANSFER DUE TO HOLIDAY, STATES UNDERSTANDING.
[2018-12-15 04:00] VITALS: BP 146/61
--- NOTE | 2018-12-15 07:42 | NUR ---
PT STATES SHE SLEPT WELL OVERNIGHT AND FEELS BETTER OVERALL. NO ACUTE EVENTS OVERNIGHT, ZOFRAN PRN FOR NAUSEA WITHOUT VOMITING. IVF INFUSING LEFT PAC. NO LABS THIS MORNING. UP WITH SBA TO BSC TO VOID. ONE LOOSE BROWN BM OVERNIGHT. DENIES PAIN. ROOM AIR. DNR. ABLE TO USE CALL LITE AND MAKE NEEDS KNOWN. CM FOLLOWING TO ASSIST WITH DC PALLIATIVE CARE AT [facility].
[2018-12-15 08:25] VITALS: BP 151/61
--- NOTE | 2018-12-15 15:06 | NUR ---
FAMILY [facility] NOT [facility].
[2018-12-15 16:10] VITALS: BP 162/67
--- NOTE | 2018-12-15 17:05 | NUR ---
GAVE ZOFRAN X1 FOR NAUSEA. PT ONLY TOLERATING SMALL PORTIONS OF FOOD. REMAINS ON IVF. WILL CONTINUE TO ASSESS.
[2018-12-15 20:00] VITALS: BP 157/65
[2018-12-16] VITALS: BP 172/70
--- NOTE | 2018-12-16 02:31 | NUR ---
RECIEVED REPORT AND ASSUMED CARE AT 1900. PT M/S SO NO ART GILDER. VITAL SIGNS STABLE. PT IS UP ADLIB. PT DENIES ANY PAIN AT THIS TIME. ASSESSMENT COMPLETED DISCUSSED PLAN OF CARE AND PT UNDERSTANDS. BED LOCKED AND CALL LIGHT WITHIN REACH. FALL PRECAUTIONS IN PLACE. HOURLY ROUNDING DONE AND ALL NEEDS MET. NURSING WILL CONTINUE TO MONITOR.
[2018-12-16 07:30] VITALS: BP 161/68
[2018-12-16 07:59] LABS: MAGNESIUM 1.8 mg/dL (1.8-2.4); POTASSIUM 3.1 mmol/L (3.5-5.1)
--- NOTE | 2018-12-16 09:40 | NUR ---
D/C DIFFUSER OPERATOR INFORMED BY THE RN IN-CHARGE OF THE PATIENT THAT THE PATIENT'S DTR REQUEST TO SPEAK TO CM. D/C DIFFUSER OPERATOR SPOKE TO THE PATIENT'S DTR AND SHE INFORMS THAT SHE PLANS TO GO TO [facility] TODAY TO PUT DOWN A DEPOSIT FOR THE PATIENT'S ROOM TODAY', AND PLAN FOR THE PATIENT TO D/C THERE TODAY. HOWEVER, IF THE PATIENT IS UNABLE TO GO THERE TODAY THE PLAN IS FOR THE PATIENT TO GO BACK TO HER APT AND ONE OF HER 8 CHILDREN WILL STAY WITH HER UNTIL SHE IS ABLE TO MOVE INTO [facility]. D/C DIFFUSER OPERATOR CALLED AND SPOKE TO LANIE WITH [facility] AND SHE CONFIRMS THAT THE PATIENT'S DTR IS THERE NOW. D/C DIFFUSER OPERATOR FAXED LANIE PATIENT'S FACESHEET, AND H&P. CM WILL REMAIN AVAILABLE TO ASSIST AND FOLLOW NEEDED.
[2018-12-16 10:18] VITALS: BP 161/68
[2018-12-16 13:31] LABS: MAGNESIUM 1.8 mg/dL (1.8-2.4); POTASSIUM 3.7 mmol/L (3.5-5.1)
[2018-12-16] MEDS ORDERED: POTASSIUM20 PO (14:31)
[2018-12-16] MEDS ORDERED: LISINOPRIL5 MG PO (14:32)
[2018-12-16] MEDS ORDERED: MAGOX 400400 MG PO (14:32)
--- NOTE | 2018-12-16 14:49 | NUR ---
RECEIVED DISCHARGE ORDERS PENDING POTASSIUM AND MAGNESIUM LAB REDRAW. K 3.7, MG 1.8. PORT DEACCESSED PER PROTOCOL. PATIENT AND HER DAUGHTER EDUCATED ON F/U APPOINTMENTS WITH HER PRIMARY AND HER ONCOLOGIST. PALLIATIVE CARE CONSULT INSTRUCTIONS AND ORDER GIVEN AT DISCHARGE. BOTH PATIENT AND HER DAUGHTER DENIED ANY QUESTIONS OR CONCERNS AT TIME OF DISCHARGE. SHE IS LEAVING VIA WHEELCHAIR ACCOMPANIED BY NURSING STAFF AND HER DAUGHTER FOR TRANSPORT. ALL BELONGINGS PACKED AND LEAVING WITH THE PATIENT.
== END 2018-12-16 14:49 | DRG 393 ==
LOC: M.ERS 10:54 → M.TBA-ER 12:27 → M.2W 12:27
PROVIDERS: Family Medicine; Internal Medicine; Nurse Practitioner Family; ADMIT Internal Medicine
DX: K52.1 Toxic gastroenteritis and colitis (principal); E43 Unspecified severe protein-calorie malnutrition; C18.9 Malignant neoplasm of colon, unspecified; C56.9 Malignant neoplasm of unspecified ovary; C78.6 Secondary malignant neoplasm of retroperitoneum and peritoneum; E86.0 Dehydration; Z51.5 Encounter for palliative care; E03.9 Hypothyroidism, unspecified; I10 Essential (primary) hypertension; I48.91 Unspecified atrial fibrillation; Z88.6 Allergy status to analgesic agent; Z68.32 Body mass index [BMI] 32.0-32.9, adult; Z88.2 Allergy status to sulfonamides; Z88.8 Allergy status to other drugs, medicaments and biological substances; Z79.899 Other long term (current) drug therapy; Z90.49 Acquired absence of other specified parts of digestive tract

== ENCOUNTER 2019-03-12 19:33 | Emergency (ER) | payer MEDICARE, BC ==
[~2019-03-12] VITALS: Ht 165.1 cm; Wt 82.3 kg
[~2019-03-12 19:33] MED LIST changes: +LISINOPRIL5 MG PO; +MAGOX 400400 MG PO; +POTASSIUM20 PO
[2019-03-12 20:13] LABS: URINE BILIRUBIN NEGATIVE (Negative); URINE BLOOD NEGATIVE (Negative); URINE CLARITY CLEAR; URINE COLOR YELLOW; URINE GLUCOSE-RANDOM NEGATIVE (Negative); URINE KETONES NEGATIVE (Negative); URINE LEUKOCYTES-REFLEX NEGATIVE (Negative); URINE NITRITE-REFLEX NEGATIVE (Negative); URINE PROTEIN NEGATIVE (Negative); URINE UROBILINOGEN 0.2 E.U./dl (0.2-1.0)
[2019-03-12 20:43] LABS: ABSOLUTE BASOPHILS 0.1 thou/uL (0.0-0.2); ABSOLUTE EOSINOPHILS 0.2 thou/uL (0.0-0.7); ABSOLUTE LYMPHOCYTES 1.5 thou/uL (0.8-5.3); ABSOLUTE MONOCYTES 0.8 thou/uL (0.0-1.2); ABSOLUTE NEUTROPHILS 5.9 thou/uL (1.6-8.1); BASOPHILS 1.1 %; EOSINOPHILS 2.7 %; HEMATOCRIT 39.3 % (37.0-47.0); HEMOGLOBIN 12.8 gm/dL (12.0-15.0); LYMPHOCYTES 17.7 %; MCHC 32.7 g/dL (28.0-37.0); MCV 91.7 fL (80.0-100.0); MONOCYTES 9.4 %; MPV 7.7 fl. (7.2-11.1); NUCLEATED RBCS 0 /100WBC; PLATELET COUNT* 240 thou/uL (150-400); POLYS 69.1 %; RBC 4.28 mil/uL (4.20-5.00); RDW-CV 14.6 % (10.5-14.5); WBC 8.5 thou/uL (4.0-11.0)
[2019-03-12 20:51] LABS: PROTIME 10.3 Seconds (9.20-11.50)
[2019-03-12 21:01] LABS: ALBUMIN 2.9 g/dL (3.4-5.0); ALKALINE PHOSPHATASE 95 U/L (46-116); ANION GAP 7 mmol/L (7-16); CALCIUM 8.5 mg/dL (8.5-10.1); CHLORIDE 105 mmol/L (98-107); CO2 27 mmol/L (21-32); GLUCOSE 119 mg/dL (70-99); NT-PRO BRAIN NAT PEPTIDE 259 pg/mL (<300); POTASSIUM 4.3 mmol/L (3.5-5.1); SGOT 15 U/L (15-37); SGPT 16 U/L (30-65); SODIUM 139 mmol/L (136-145); TOTAL BILIRUBIN 0.2 mg/dL (<0.1-1.0); TOTAL PROTEIN 6.9 g/dL (6.4-8.2); TROPONIN-I LEVEL <0.06 ng/mL (<0.06)
[2019-03-12 21:11] LABS: BUN 17 mg/dL (7-18)
[2019-03-12 23:00] VITALS: BP 148/62
--- NOTE | 2019-03-13 20:09 | EKG ---
[place] [address] ELECTROCARDIOGRAM REPORT Name: CRISTINA KNUTSON Room: [facility]#: [id number] Admission: 03/12/19 Attend Phys: Discharge: 03/12/19 Date of : 38 Report #: [id number] THIS REPORT FOR: //name// [facility] ED Test Date: 2019-03-12 Test Time: 19:51:07 Pat Name: CRISTINA KNUTSON Department: Room: Gender: F Shaper Operator: JONATHAN : 1940 Requested By: Lis Mustafa Order Number: [id number] MD: Jourdan Jurado Measurements Intervals [place] Rate: 70 P: 42 OR: 139 QRS: 1 QRSD: 118 T: 34 QT: 395 QTc: 427 Interpretive Statements Sinus rhythm Nonspecific intraventricular conduction delay Low voltage, precordial leads Compared to ECG 12/12/2018 12:16:32 Intraventricular conduction delay now present Low QRS voltage now present Left ventricular hypertrophy no longer present Electronically Signed On 03-13-2019 20:09:21 CDT by Jourdan Jurado [email or web address] <ELECTRONICALLY SIGNED> By: Kd Jurado MD, MERGED WITH [facility] 03/13/192008 50 50 Kd Jurado MD, MERGED WITH [facility] /EPI
== END 2019-03-12 23:00 | disposition home or self-care (01) ==
LOC: M.ERS 19:33
PROVIDERS: Emergency Medicine
DX: R00.2 Palpitations (principal); I12.9 Hypertensive chronic kidney disease with stage 1 through stage 4 chronic kidney disease, or unspecified chronic kidney disease; N18.3 Chronic kidney disease, stage 3 (moderate); I48.91 Unspecified atrial fibrillation; E03.9 Hypothyroidism, unspecified; Z85.038 Personal history of other malignant neoplasm of large intestine; Z85.43 Personal history of malignant neoplasm of ovary; Z90.89 Acquired absence of other organs; Z90.49 Acquired absence of other specified parts of digestive tract; Z98.49 Cataract extraction status, unspecified eye; Z88.6 Allergy status to analgesic agent; Z88.2 Allergy status to sulfonamides; Z88.8 Allergy status to other drugs, medicaments and biological substances

== ENCOUNTER 2019-05-15 09:50 | Inpatient (IN) | payer MEDICARE, BC ==
[~2019-05-15] VITALS: Ht 165.1 cm; Wt 80.7 kg
[2019-05-15 09:55] VITALS: BP 141/64
[2019-05-15] MEDS ORDERED: COMPAZINE10 MG PO (10:01)
[2019-05-15] MEDS ORDERED: OMEPRAZOLE 20 M20 M1 PO (10:01)
[2019-05-15] MEDS ORDERED: SORINE 80 MG TA80 MG PO (10:01)
[2019-05-15 10:48] LABS: ABSOLUTE BASOPHILS 0.1 thou/uL (0.0-0.2); ABSOLUTE EOSINOPHILS 0.2 thou/uL (0.0-0.7); ABSOLUTE LYMPHOCYTES 1.5 thou/uL (0.8-5.3); ABSOLUTE MONOCYTES 0.8 thou/uL (0.0-1.2); BASOPHILS 0.7 %; EOSINOPHILS 2.3 %; HEMATOCRIT 39.4 % (37.0-47.0); HEMOGLOBIN 13.2 gm/dL (12.0-15.0); LYMPHOCYTES 17.6 %; MCHC 33.4 g/dL (28.0-37.0); MCV 86.7 fL (80.0-100.0); MONOCYTES 9.7 %; MPV 7.4 fl. (7.2-11.1); NUCLEATED RBCS 0 /100WBC; PLATELET COUNT* 282 thou/uL (150-400); POLYS 69.7 %; RBC 4.55 mil/uL (4.20-5.00); RDW-CV 14.5 % (10.5-14.5); WBC 8.6 thou/uL (4.0-11.0)
[2019-05-15 11:04] LABS: CALCIUM 8.9 mg/dL (8.5-10.1); CREATININE 1.2 mg/dL (0.6-1.3); POTASSIUM 4.4 mmol/L (3.5-5.1)
[2019-05-15 11:08] LABS: ALBUMIN 3.1 g/dL (3.4-5.0); TOTAL BILIRUBIN 0.5 mg/dL (<0.1-1.0); TOTAL PROTEIN 7.4 g/dL (6.4-8.2)
[2019-05-15 12:43] LABS: URINE BILIRUBIN NEGATIVE (Negative); URINE BLOOD NEGATIVE (Negative); URINE CLARITY CLEAR; URINE COLOR YELLOW; URINE GLUCOSE-RANDOM NEGATIVE (Negative); URINE KETONES NEGATIVE (Negative); URINE NITRITE-REFLEX NEGATIVE (Negative); URINE PROTEIN NEGATIVE (Negative); URINE SPECIFIC GRAVITY <= 1.005 (1.005-1.030); URINE UROBILINOGEN 0.2 E.U./dl (0.2-1.0)
[2019-05-15 12:45] LABS: URINE LEUKOCYTES-REFLEX 2+ (Negative)
[2019-05-15 12:51] LABS: SQUAMOUS >10 Many /LPF (0-3); URINE WBC-REFLEX 6-15 Few /HPF (0-5)
[2019-05-15 12:52] LABS: BACTERIA-REFLEX 1-9 Few /HPF (None Seen); CASTS None Seen /LPF (None Seen); CRYSTALS None Seen /LPF (None Seen); MUCUS 4-6 Moderate strn/LPF (None Seen); URINE RBC None Seen /HPF (0-2)
[2019-05-15 16:04] VITALS: BP 165/70
[2019-05-15 16:45] VITALS: BP 148/78
--- NOTE | 2019-05-15 18:02 | NUR ---
PATIENT ARRIVED ON UNIT AT APPROX 1600. ALERT AND ORIENTED TIMES FOUR. UP AD JOSE IN ROOM. MINOR COMPLAINTS OF PAIN ON ARRIVAL. TOLD RN THAT DAVID HER BLOOD THAT EVERYONE SHOULD HAVE A MASK ON AT ALL TIMES WHEN USING HER PORT IV. ASPHALT TAMPER ASSESSMENT AND HOURLY ROUNDING COMPLETED CHARTED
--- NOTE | 2019-05-15 18:15 | EKG ---
[place] [address] ELECTROCARDIOGRAM REPORT Name: VALE KNUTSONDA MICHELLE Room: [address] ADM IN M.R.#: [id number] Admission: 05/15/19 Attend Phys: Mitchell Pinon MD Discharge: Date of : 38 Report #: [id number] THIS REPORT FOR: //name// [facility] ED Test Date: 2019-05-15 Test Time: 11:05:05 Pat Name: CRISTINA KNUTSON Department: Room: [facility] Gender: F Crematory Operator: : 1940 Requested By: Giovanni Valerio Order Number: [id number] MD: Donte Scott Measurements Intervals [place] Rate: 76 P: 46 TN: 159 QRS: 1 QRSD: 90 T: 42 QT: 417 QTc: 469 Interpretive Statements Sinus rhythm Compared to ECG 03/12/2019 19:51:07 Intraventricular conduction delay no longer present Electronically Signed On 05-15-2019 18:14:49 CDT by Donte Scott [email or web address] <ELECTRONICALLY SIGNED> By: Donte Scott MD, [facility] 05/15/19 1814 04 Donte Scott MD, FACC /EPI
[2019-05-15] MEDS ORDERED: GARAMYCIN5 ML OPHTHALMIC (18:58)
[2019-05-15 22:09] VITALS: BP 144/69
[2019-05-16 01:59] LABS: CALCIUM 8.6 mg/dL (8.5-10.1); CREATININE 0.9 mg/dL (0.6-1.3); MAGNESIUM 2.1 mg/dL (1.8-2.4); POTASSIUM 4.4 mmol/L (3.5-5.1)
--- NOTE | 2019-05-16 05:43 | NUR ---
PATIENT HAD NO BM. REPORTED NO N/V OR NEED FOR PAIN MEDICATION. PORT FLUSHING GREAT, SHE WAS ABLE TO SLEEP THROUGH THE SHIFT WITHOUT ANY WORSENING OF CONDITIONS. HELD IV METOPROLOL NOT INDICATED. PLAN IS FOR CASE MANAGEMENT TO [facility].
[2019-05-16 08:13] VITALS: BP 124/64
[2019-05-16 16:00] VITALS: BP 153/60
--- NOTE | 2019-05-16 17:25 | NUR ---
PT A&Ox4. VITALS STABLE. FLUIDS INFUSING INTO PORT. UP TO CAMMODE. MEDIUM SIZED SOFT BM TODAY. TOLERATING CLEARS. ON CLEAR LIQUID DIET, ADVANCE TOLERATED. DENIED PAIN. DENIED N/V. CALL LIGHT WITHIN REACH. WILL CONTINUE TO MONITOR.
[2019-05-16 20:00] VITALS: BP 148/70
[2019-05-17 04:26] LABS: HEMATOCRIT 35.1 % (37.0-47.0); HEMOGLOBIN 11.6 gm/dL (12.0-15.0); MCH 28.7 pg (26.0-34.0); MPV 7.2 fl. (7.2-11.1); RBC 4.04 mil/uL (4.20-5.00); RDW-CV 13.9 % (10.5-14.5); WBC 8.3 thou/uL (4.0-11.0)
[2019-05-17 04:42] LABS: CALCIUM 8.1 mg/dL (8.5-10.1); CREATININE 0.8 mg/dL (0.6-1.3); POTASSIUM 4.1 mmol/L (3.5-5.1)
--- NOTE | 2019-05-17 06:01 | NUR ---
PT RESTING/SLEEPING THROUGH THE SHIFT. NO C/O PAIN. TOLERATING CLEAR LIQUID DIET WITHOUT NAUSEA OR VOMITING. HAD BM ONETIME THIS SHIFT. WILL CONTINUE TO MONITOR.
[2019-05-17 08:21] VITALS: BP 149/67
[2019-05-17 17:10] VITALS: BP 150/67
--- NOTE | 2019-05-17 17:16 | NUR ---
PT A&Ox4. VITALS STABLE. PORT PATENT. UP AD JOSE. BM TODAY. DENIED PAIN. DENIED N/V. TOLERATING FULL LIQUID DIET. W[facility], CM CONSULTED. CALL LIGHT WITHIN REACH. WILL CONTINUE TO MONITOR.
[2019-05-17 20:20] VITALS: BP 155/60
[2019-05-18 05:55] LABS: HEMATOCRIT 34.6 % (37.0-47.0); HEMOGLOBIN 11.7 gm/dL (12.0-15.0); MCH 28.9 pg (26.0-34.0); MCHC 33.7 g/dL (28.0-37.0); MCV 85.9 fL (80.0-100.0); MPV 7.1 fl. (7.2-11.1); RBC 4.03 mil/uL (4.20-5.00); RDW-CV 14.2 % (10.5-14.5); WBC 7.9 thou/uL (4.0-11.0)
[2019-05-18 06:07] LABS: CALCIUM 8.6 mg/dL (8.5-10.1); CREATININE 0.9 mg/dL (0.6-1.3); MAGNESIUM 1.9 mg/dL (1.8-2.4); PHOSPHORUS* 2.9 mg/dL (2.5-4.9)
--- NOTE | 2019-05-18 06:15 | NUR ---
VSS RA, MEDS GIVEN ORDERED. NO C/O PAIN. TOLERATING FULL LIQUID. NO N/V. SLEEPING WELL THROUGH THE NIGHT. WILL CONTINUE TO MONITOR.
[2019-05-18 10:24] VITALS: BP 146/59
--- NOTE | 2019-05-18 13:39 | NUR ---
[facility] REP IN WITH PATIENT AND FAMILY MEMBERS AT THIS TIME.
[2019-05-18 15:38] VITALS: BP 161/66
[2019-05-18 15:51] VITALS: BP 161/66
--- NOTE | 2019-05-18 15:54 | NUR ---
SW met with pt and pt dtr to discuss safe dc planning and SW was previously informed that pt/pt family choice is for [facility]. Pt and pt family met with [facility] nurse and pt family said that they have taken care of everything--hospital bed, pt dtr to transport pt home to [place]. SW presented OtHDNR but pt/family refused to sign stating that they wished to complete with hospice at pt home. SW explained this is for if anything were to happen on the way home, pt would probably be rescusitated, pt and pt family said that pt has DNR bracelet and that they were not concerned; they did not want to complete prior to dc. NANCY discussed dc plan for today with Dr Cohen and pt nurse. [facility] and [facility]
[2019-05-18] MEDS ORDERED: MSL20MG/ML SUBLING (16:07)
[2019-05-18] MEDS ORDERED: ATIVAN2 MG/1 ML PO (16:10)
[2019-05-18 16:12] VITALS: BP 161/66
--- NOTE | 2019-05-18 16:40 | NUR ---
DISCHARGE TO HOME W/ HOSPICE CARE. [facility] IN THIS AFTERNOON TO DISCUSS CARE W/ PATIENT AND FAMILY MEMBERS PRESENT. PATIENT PLEASANT AND COOPERATIVE W/ ASSESS AND CARES THIS SHIFT. IV CL ACCESS DISCONTINUED, SITE FLUSHED W/ 20ML NS, +BLOOD RETURN NOTED. COTTON BALL/TAPE APPLIED TO SITE. DISCHARGE INSTRUCTIONS REVIEWED W/ PATIENT/FAMILY, PATIENT STATES VERBALLY OF UNDERSTANDING. COPY OF INSTRUCTIONS AND ORIG SCRIPTS GIVEN TO PATIENT IN [facility]. BELONGINGS GATHERED PER FAMILY MEMBERS, PATIENT ASST W/ DRSG BY FAMILY MEMBER. PATIENT DENIES OTHER NURSING NEEDS AT THIS TIME. ESCORTED TO AWAITING VEHICLE PER WC W/ NURSING AND FAMILY MEMBER PRESENT. FWW W/ FAMILY MEMBER, PATIENT HOLDING PURSE. PATIENT ALERT AND ORIENTED, ASST TO FRONT PASSENGER SEAT OF CAR. STEADY, SLOW GAIT NOTED.~TJRN
[2019-05-18 16:50] VITALS: BP 161/66
== END 2019-05-18 16:40 | disposition hospice, home (50) | DRG 389 ==
LOC: M.ERS 09:50 → M.TBA-ER 12:41 → M.3W 12:41
PROVIDERS: Emergency Medicine Emergency Medical Services; Surgery; ADMIT Internal Medicine
DX: K56.609 Unspecified intestinal obstruction, unspecified as to partial versus complete obstruction (principal); C78.5 Secondary malignant neoplasm of large intestine and rectum; C56.9 Malignant neoplasm of unspecified ovary; C80.0 Disseminated malignant neoplasm, unspecified; E03.9 Hypothyroidism, unspecified; I48.91 Unspecified atrial fibrillation; I12.9 Hypertensive chronic kidney disease with stage 1 through stage 4 chronic kidney disease, or unspecified chronic kidney disease; N18.3 Chronic kidney disease, stage 3 (moderate); Z66 Do not resuscitate; Z51.5 Encounter for palliative care; Z85.038 Personal history of other malignant neoplasm of large intestine; Z85.43 Personal history of malignant neoplasm of ovary; Z90.49 Acquired absence of other specified parts of digestive tract; Z88.6 Allergy status to analgesic agent; Z88.2 Allergy status to sulfonamides; Z88.8 Allergy status to other drugs, medicaments and biological substances; Z82.5 Family history of asthma and other chronic lower respiratory diseases; Z83.3 Family history of diabetes mellitus; Z87.891 Personal history of nicotine dependence; Z92.21 Personal history of antineoplastic chemotherapy; Z80.8 Family history of malignant neoplasm of other organs or systems